=== PATIENT | male | born 1980 | race Caucasian/White ===

== ENCOUNTER 2017-01-28 12:21 | Inpatient (IN) | payer OTHER ==
[2017-01-28 16:52] VITALS: BMI 25.1
--- NOTE | 2017-01-28 17:37 | HP ---
COWS - Scale Resting Pulse: 0= [place] 80 or Below Sweatin= Chills/Flushing Restless Observation: 1= Difficult to Sit Still Pupil Size: 0= Normal to Room Light Bone or Joint Aches: 2= Severe Diffuse Aches Runny Nose/ Eye Tearin= Runny Nose/Eyes GI Upset > 30mins: 3= Vomiting/Diarrhea Tremor Observation: 2= Slight Tremor Visible Yawning Observation: 1= 1-2x During Session Anxiety or Irritability: 2=Irritable/Anxious Goose Flesh Skin: 0=Smooth Skin COWS Score: 14 CIWA Score - CIWA Score Nausea/Vomitin Muscle Tremors: 3 Anxiety: 4-Mod. Anxious/Guarded Agitation: 4-Moderately Restless Paroxysmal Sweats: 2 Orientation: 1-Uncertain about Date Tacttile Disturbances: 0-None Auditory Disturbances: 0-None Visual Disturbances: 0-None Headache: 1-Very Mild CIWA-Ar Total Score: 17 Admission ROS BHS - HPI Chief Complaint: WTIHDRAWAL SX Allergies/Adverse Reactions: Allergies Allergy/AdvReac Type Severity Reaction Status Date / Time No Known Allergies Allergy Verified 01/28/17 17:00 History of Present Illness: 36 YEARS OLD MALE WITH LONG HISTORY OF OPIATE, XANAX, NICOTINE DEPENDENCE, SEIZURE SINCE 1998 TREATED WITH BABAPENTIN HAS CHRONIC BACK PAIN AND BIPOLAR II IS ADMITTED TO DETOX Exam Limitations: No Limitations - Ebola screening Have you traveled outside of the country in the last 21 days: No Have you had contact with anyone from an Ebola affected area: No Have you been sick,other than usual withdrawal symptoms: No Do you have a fever: No - Review of Systems Constitutional: Chills, Loss of Appetite, Changes in sleep, Unintentional Wgt. Loss, Unexplained wgt Loss EENT: reports: No Symptoms Reported, Tinnitus (left ear since 2008) Respiratory: reports: Productive cough (greenish) GI: reports: No Symptoms Reported, Poor Appetite, Indigestion : reports: No Symptoms Reported Musculoskeletal: reports: Back Pain, Joint Pain, Muscle Pain, Neck Pain Integumentary: reports: Change in Color (left dorsal hand) Neuro: reports: Seizure (10/2016), Tremors Endocrine: reports: No Symptoms Reported Hematology: reports: No Symptoms Reported Psychiatric: reports: Judgement Intact Other Systems: Reviewed and Negative Patient History - Patient Medical History Hx Anemia: No Hx Asthma: No Hx Chronic Obstructive Pulmonary Disease (COPD): No Hx Cancer: No Hx Cardiac Disorders: No Hx Congestive Heart Failure: No Hx Hypertension: No Hx Hypercholesterolemia: No Hx Pacemaker: No HX Cerebrovascular Accident: No Hx Seizures: Yes (xanax related seizures last 2 months ago.) Hx Dementia: No Hx Diabetes: No Hx Gastrointestinal Disorders: Yes (GERD) Hx Liver Disease: No Hx Genitourinary Disorders: No Hx Sexually Transmitted Disorders: No Hx Renal Disease (ESRD): No Hx Thyroid Disease: No Hx Human Immunodeficiency Virus (HIV): No Hx Hepatitis C: Yes Hx Depression: No Hx Suicide Attempt: No Hx Bipolar Disorder: Yes Hx Schizophrenia: No - Patient Surgical History Past Surgical History: No - PPD History Previous Implant?: Yes Documented Results: Negative w/o proof Implanted On Prior [facility] Admission?: No PPD to be Administered?: Yes - Smoking Cessation Smoking history: Current every day smoker Have you smoked in the past 12 months: Yes Aproximately how many cigarettes per day: 20 Cigars Per Day: 0 Hx Chewing Tobacco Use: No Initiated information on smoking cessation: Yes 'Breaking Loose' booklet given: 01/28/17 - Substance & Tx. History Hx Alcohol Use: No Hx Substance Use: Yes Substance Use Type: Cocaine, Marijuana, Opiates, Tranquilizers Hx Substance Use Treatment: Yes - Substances Abused Alprazolam (Xanax) Route: Oral Frequency: Daily Amount used: 16 mg Age of first use: 13 Date of Last Use: 01/28/17 Cocaine Route: Smoking Frequency: Daily Amount used: 1 gram Age of first use: 14 Date of Last Use: 01/27/17 Heroin Route: Injection Frequency: Daily Amount used: 3-4 bags Age of first use: 15 Date of Last Use: 01/28/17 Marijuana/Hashish Route: Smoking Frequency: Daily Amount used: 1 joint Age of first use: 8 Date of Last Use: 01/27/17 adderall Route: Oral Frequency: Daily Amount used: 90mg Age of first use: 30 Date of Last Use: 01/27/17 Family Disease History - Family Disease History Family Disease History: [place]: Mother (liver), Other: Father (suicidal 2001 ) Admission Physical Exam BHS - Vital Signs Vital Signs: Vital Signs - 24 hr 01/28/17 16:47 Temperature 96.6 F L Pulse Rate 71 Respiratory 20 Rate Blood Pressure 126/76 - Physical General Appearance: Yes: Appropriately Dressed, Mild Distress, Thin, Tremorous, Irritable, Sweating, Anxious HEENTM: Yes: Hearing grossly Normal, Normal ENT Inspection, Normocephalic, Normal Voice Respiratory: Yes: Chest Non-Tender, Lungs Clear, Normal Breath Sounds, No Respiratory Distress, No Accessory Muscle Use Neck: Yes: Supple, Trachea in good position Breast: Yes: Breasts Symetrical Cardiology: Yes: Regular Rhythm, Regular Rate, S1, S2 Abdominal: Yes: Non Tender, Soft, Increased Bowel Sounds Genitourinary: Yes: Within Normal Limits Back: Yes: Normal Inspection Musculoskeletal: Yes: full range of Motion, Gait Steady, Back pain, Muscle Pain Extremities: Yes: Normal Range of Motion, Non-Tender, Tremors Neurological: Yes: Alert, Motor Strength 5/5, Normal Mood/Affect, Normal Response Integumentary: Yes: Warm, Track Espinoza Lymphatic: Yes: Within Normal Limits - Diagnostic (1) Opioid dependence with withdrawal Current Visit: Yes Status: Acute (2) Sedative, hypnotic or anxiolytic dependence with withdrawal, uncomplicated Current Visit: Yes Status: Acute (3) Cocaine dependence, uncomplicated Current Visit: Yes Status: Acute (4) Cannabis dependence, uncomplicated Current Visit: Yes Status: Chronic (5) Seizure Current Visit: Yes Status: Chronic Comment: neurontin 800 mg tid since 1995 (6) Nicotine dependence Current Visit: Yes Status: Acute Qualifiers: Nicotine product type: cigarettes Substance use status: in withdrawal Qualified Code(s): F17.213 - Nicotine dependence, cigarettes, with withdrawal (7) Hepatitis C antibody test positive Current Visit: Yes Status: Chronic Comment: scheduled to treat (8) Chronic back pain Current Visit: Yes Status: Chronic Qualifiers: Back pain location: low back pain Back pain laterality: bilateral Sciatica presence: without sciatica Qualified Code(s): M54.5 - Low back pain; G89.29 - Other chronic pain Comment: since 2008 (9) Bipolar II disorder Current Visit: Yes Status: Suspected (10) Weight loss Current Visit: Yes Status: Acute (11) Tinnitus Current Visit: Yes Status: Chronic Qualifiers: Laterality: left Qualified Code(s): H93.12 - Tinnitus, left ear Comment: since 2008 Cleared for Admission [facility] - Detox or Rehab [facility] Level of Care: Medically Managed Detox Regimen/Protocol: Methadone/Valium [facility] Breath Alcohol Content Breath Alcohol Content: 0 Urine Drug Screen - Results Drug Screen Negative: No Urine Drug Screen Results: THC-Marijuana, MELISSA-Cocaine, OPI-Opiates, MET- Methamphetamine, BZO-Benzodiazepines, MTD-Methadone, OXY-Oxycodone
[2017-01-28] MEDS ORDERED: MAGNESIUM HYDROX 2400MG/30ML ORAL SUSPENSION 30 ML CUP PO PRN (18:19)
[2017-01-28] MEDS ORDERED: LOPERAMIDE HCL 2 MG CAPSULE PO PRN (18:19)
[2017-01-28] MEDS ORDERED: diphenhydrAMINE HCL 50 MG CAPSULE PO PRN (18:19)
[2017-01-28] MEDS ORDERED: METHADONE HCL 10 MG TABLET (FOR DETOX USE ONLY) PO ONE ×2 (18:19→23:00)
[2017-01-28] MEDS ORDERED: P-EPHED 60MG/TRIPROLIDI 2.5MG TABLET PO PRN (18:19)
[2017-01-28] MEDS ORDERED: MENTHOL/PHENOL 1 EACH UD MM PRN (18:19)
[2017-01-28] MEDS ORDERED: ACETAMINOPHEN 325 MG TABLET (FP) PO PRN (18:19)
[2017-01-28] MEDS ORDERED: MAGNESIUM CITRATE 300 ML BOTTLE PO PRN (18:19)
[2017-01-28] MEDS ORDERED: NICOTINE POLACRILEX 4 MG GUM BC PRN (18:19)
[2017-01-28] MEDS ORDERED: MAG HYDROX/AL HYDROX/SIMETH 30 ML UNIT-DOSE CUP PO PRN (18:19)
[2017-01-28] MEDS ORDERED: guaiFENesin/D-METHORPHAN HB 10 ML UNIT-DOSE CUPS PO PRN (18:19)
[2017-01-28] MEDS ORDERED: diazePAM 5 MG TABLET PO ONE (18:19)
[2017-01-28] MEDS: diazePAM 5 MG TABLET PO SCH (22:55)
[2017-01-28] MEDS: GABAPENTIN 400 MG CAPSULE (FP) PO SCH (22:59)
[2017-01-28] MEDS: THIAMINE HCL 100 MG TABLET (FP) PO SCH (22:59)
[2017-01-28] MEDS: CYCLOBENZAPRINE HCL 10 MG TABLET (FP) PO SCH (22:59)
[2017-01-28] MEDS: RANITIDINE HCL 150 MG TABLET (FP) PO SCH (22:59)
[2017-01-28 23:26] LABS: URINE APPEARANCE CLEAR; URINE BILIRUBIN NEGATIVE (NEGATIVE); URINE BLOOD NEGATIVE (NEGATIVE); URINE COLOR YELLOW; URINE GLUCOSE (UA) NEGATIVE (NEGATIVE); URINE KETONE NEGATIVE (NEGATIVE); URINE LEUK ESTERASE NEGATIVE (NEGATIVE); URINE NITRITE NEGATIVE (NEGATIVE); URINE UROBILINOGEN NEGATIVE E.U./dl (0.2-1.0)
[2017-01-28 23:29] LABS: URINE PROTEIN 1+ (NEGATIVE)
[2017-01-28 23:33] LABS: URINE HYALINE CAST 2 /lpf; URINE MUCUS MODERATE; URINE RBC 1 /hpf (0-3); URINE WBC 1 /hpf (3-5)
[2017-01-29] MEDS: CYCLOBENZAPRINE HCL 10 MG TABLET (FP) PO SCH ×4 (07:15→23:12)
[2017-01-29] MEDS: GABAPENTIN 400 MG CAPSULE (FP) PO SCH ×4 (07:15→23:11)
[2017-01-29] MEDS: diazePAM 5 MG TABLET PO SCH ×3 (07:16→23:12)
[2017-01-29] MEDS: diazePAM 5 MG TABLET PO PRN (07:47)
[2017-01-29] MEDS ORDERED: METHADONE HCL 10 MG TABLET (FOR DETOX USE ONLY) PO SCH (10:00)
[2017-01-29 10:14] LABS: MCH 30.4 pg (25.7-33.7); MCHC 34.7 g/dl (32.0-35.9); MEAN CELL VOLUME 87.7 fl (80-96); MEAN PLT VOLUME 7.9 fl (7.5-11.1); PLATELET COUNT 206 K/MM3 (134-434); RDW 13.5 % (11.9-15.9); WHITE BLOOD COUNT 5.2 K/mm3 (4.0-10.0)
[2017-01-29 10:24] LABS: ALBUMIN 3.5 g/dl (3.4-5.0); ANION GAP 11 (8-16); CO2 28 mmol/L (21-32); SGPT/ALT 48 U/L (12-78)
[2017-01-29 10:27] LABS: ALK PHOS 116 U/L (45-117); BILIRUBIN,TOTAL 0.4 mg/dL (0.2-1.0); CALCIUM 8.5 mg/dL (8.5-10.1); COCKROFT - GAULT 121.37; CREATININE 0.9 mg/dL (0.7-1.3); GLUCOSE,RANDOM 112 mg/dL (74-106); SGOT/AST 31 U/L (15-37); TOT PROT 6.9 g/dl (6.4-8.2)
[2017-01-29] MEDS: PRENATAL VITAMINS W/ FOLIC ACID TABLET (FP) PO SCH (12:01)
[2017-01-29] MEDS: LIDOCAINE 5% TOPICAL PATCH TP SCH (12:02)
[2017-01-29] MEDS: RANITIDINE HCL 150 MG TABLET (FP) PO SCH ×2 (12:02→23:12)
[2017-01-29] MEDS: NICOTINE 21 MG/24 HOURS TOPICAL PATCH TD SCH (12:02)
--- NOTE | 2017-01-29 15:01 | PN ---
[facility] CIWA - CIWA Score Nausea/Vomitin-No Nausea/No Vomiting Muscle Tremors: 3 Anxiety: 4-Mod. Anxious/Guarded Agitation: 2 Paroxysmal Sweats: 3 Orientation: 4Disoriented Place/Person Tacttile Disturbances: 2-Mild Itch/Numbness/Burn Auditory Disturbances: 0-None Visual Disturbances: 0-None Headache: 3-Moderate CIWA-Ar Total Score: 21 BHS COWS - Scale Resting Pulse: 0= [place] 80 or Below Sweatin= Chills/Flushing Restless Observation: 1= Difficult to Sit Still Pupil Size: 0= Normal to Room Light Bone or Joint Aches: 2= Severe Diffuse Aches Runny Nose/ Eye Tearin= Nasal Congestion GI Upset > 30mins: 1= Stomach Cramp Tremor Observation of Outstretched Hands: 2= Slight Tremor Visible Yawning Observation: 1= 1-2x During Session Anxiety or Irritability: 2=Irritable/Anxious Goose Flesh Skin: 3=Piloerection COWS Score: 14 S Progress Note (SOAP) Subjective: Fatigue, H/A, Body aches, Sweating. Objective: PT. A & O X 1 (DISORIENTED ABOUT DAY/DATE AND ABOUT LOCATION). 01/29/17 14:58 Vital Signs Temperature 97.7 F 01/29/17 06:00 Pulse Rate 56 L 01/29/17 06:00 Respiratory Rate 16 01/29/17 06:00 Blood Pressure 116/60 01/29/17 06:00 O2 Sat by Pulse Oximetry (%) Laboratory Last Values WBC 5.2 K/mm3 (4.0-10.0) 01/29/17 06:00 RBC 4.42 M/mm3 (4.00-5.60) 01/29/17 06:00 Hgb 13.5 GM/dL (11.7-16.9) 01/29/17 06:00 Hct 38.7 % (35.4-49) 01/29/17 06:00 MCV 87.7 fl (80-96) 01/29/17 06:00 MCHC 34.7 g/dl (32.0-35.9) 01/29/17 06:00 RDW 13.5 % (11.9-15.9) 01/29/17 06:00 Plt Count 206 K/MM3 (134-434) 01/29/17 06:00 MPV 7.9 fl (7.5-11.1) 01/29/17 06:00 Sodium 140 mmol/L (136-145) 01/29/17 06:00 Potassium 3.4 mmol/L (3.5-5.1) L 01/29/17 06:00 Chloride 101 mmol/L (98-107) 01/29/17 06:00 Carbon Dioxide 28 mmol/L (21-32) 01/29/17 06:00 Anion Gap 11 (8-16) 01/29/17 06:00 BUN 16 mg/dL (7-18) 01/29/17 06:00 Creatinine 0.9 mg/dL (0.7-1.3) 01/29/17 06:00 Creat Clearance w eGFR > 60 (>60) 01/29/17 06:00 Random Glucose 112 mg/dL (74-106) H 01/29/17 06:00 Calcium 8.5 mg/dL (8.5-10.1) 01/29/17 06:00 Total Bilirubin 0.4 mg/dL (0.2-1.0) 01/29/17 06:00 AST 31 U/L (15-37) 01/29/17 06:00 ALT 48 U/L (12-78) 01/29/17 06:00 Alkaline Phosphatase 116 U/L (45-117) 01/29/17 06:00 Total Protein 6.9 g/dl (6.4-8.2) 01/29/17 06:00 Albumin 3.5 g/dl (3.4-5.0) 01/29/17 06:00 Urine Color Yellow 01/28/17 22:03 Urine Appearance Clear 01/28/17 22:03 Urine pH 5.0 (5.0-8.0) 01/28/17 22:03 Ur Specific [place] 1.034 (1.001-1.035) 01/28/17 22:03 Urine Protein 1+ (NEGATIVE) H 01/28/17 22:03 Urine Glucose (UA) Negative (NEGATIVE) 01/28/17 22:03 Urine Ketones Negative (NEGATIVE) 01/28/17 22:03 Urine Blood Negative (NEGATIVE) 01/28/17 22:03 Urine Nitrite Negative (NEGATIVE) 01/28/17 22:03 Urine Bilirubin Negative (NEGATIVE) 01/28/17 22:03 Urine Urobilinogen Negative E.U./dl (0.2-1.0) 01/28/17 22:03 Ur Leukocyte Esterase Negative (NEGATIVE) 01/28/17 22:03 Urine RBC 1 /hpf (0-3) 01/28/17 22:03 Urine WBC 1 /hpf (3-5) 01/28/17 22:03 Hyaline Casts 2 /lpf 01/28/17 22:03 Urine Mucus Moderate 01/28/17 22:03 RPR Titer Nonreactive (NONREACTIVE) 01/29/17 06:00 LABS NOTED. Assessment: 01/29/17 14:59 WITHDRAWAL SYMPTOMS. Plan: CONTINUE DETOX. K, 20 MEQ NOW AND THEN BID AFTER. ADVISED PATIENT TO FOLLOW-UP WITH BUSINESS STRATEGY MANAGER / REHAB MEDICAL PROVIDER AFTER DISCHARGE FROM DETOX FOR GENERAL MEDICAL ASSESSMENT AND FOR ABNORMAL ADMISSION LAB VALUES.
[2017-01-29] MEDS ORDERED: POTASSIUM CHLORIDE TABS 20 MEQ TABLET.ER (FP) PO ONE (15:02)
--- NOTE | 2017-01-29 16:16 | EKG ---
Test Reason : Blood Pressure : / mmHG Vent. Rate : 076 BPM Atrial Rate : 076 BPM P-R Int : 144 ms QRS Dur : 090 ms QT Int : 356 ms P-R-T Axes : 056 063 049 degrees QTc Int : 400 ms NORMAL SINUS RHYTHM NORMAL ECG NO PREVIOUS ECGS AVAILABLE Confirmed by JJ HART MD ([id number]) on 01/29/2017 4:15:52 PM Referred By: Confirmed By:JJ HART MD
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
[2017-01-29] MEDS ORDERED: ZOLPIDEM TARTRATE 5 MG TABLET PO PRN (17:13)
[2017-01-29] MEDS ORDERED: buPROPion HCL 75 MG TABLET PO ONE (17:30)
[2017-01-29] MEDS ORDERED: buPROPion HCL 100 MG TABLET PO SCH (22:00)
[2017-01-29] MEDS ORDERED: buPROPion HCL 75 MG TABLET PO SCH (22:00)
[2017-01-29] MEDS: POTASSIUM CHLORIDE TABS 20 MEQ TABLET.ER (FP) PO SCH (23:12)
[2017-01-29] MEDS: ZOLPIDEM TARTRATE 5 MG TABLET PO PRN (23:15)
[2017-01-30] MEDS: THIAMINE HCL 100 MG TABLET (FP) PO SCH ×2 (00:08→22:47)
[2017-01-30] MEDS: GABAPENTIN 400 MG CAPSULE (FP) PO SCH ×3 (06:03→22:46)
[2017-01-30] MEDS: CYCLOBENZAPRINE HCL 10 MG TABLET (FP) PO SCH ×3 (06:03→22:46)
[2017-01-30] MEDS: diazePAM 5 MG TABLET PO PRN ×2 (06:06→17:52)
[2017-01-30] MEDS: PRENATAL VITAMINS W/ FOLIC ACID TABLET (FP) PO SCH (11:08)
[2017-01-30] MEDS: POTASSIUM CHLORIDE TABS 20 MEQ TABLET.ER (FP) PO SCH ×2 (11:09→22:46)
[2017-01-30] MEDS: diazePAM 5 MG TABLET PO SCH ×2 (11:09→22:46)
[2017-01-30] MEDS: RANITIDINE HCL 150 MG TABLET (FP) PO SCH ×2 (11:09→22:46)
[2017-01-30] MEDS: buPROPion HCL 75 MG TABLET PO SCH ×2 (11:09→17:50)
[2017-01-30] MEDS: METHADONE HCL 5 MG TABLET (FOR DETOX USE ONLY) PO SCH (11:09)
[2017-01-30] MEDS: NICOTINE 21 MG/24 HOURS TOPICAL PATCH TD SCH (11:10)
[2017-01-30] MEDS: LIDOCAINE 5% TOPICAL PATCH TP SCH (11:10)
--- NOTE | 2017-01-30 15:21 | PN ---
S CIWA - CIWA Score Nausea/Vomitin Muscle Tremors: 4-Moderate,w/Arms Extend Anxiety: 4-Mod. Anxious/Guarded Agitation: 4-Moderately Restless Paroxysmal Sweats: No Perspiration Orientation: 0-Oriented Tacttile Disturbances: 1-Very Mild Itch/Numbness Auditory Disturbances: 0-None Visual Disturbances: 0-None Headache: 2-Mild CIWA-Ar Total Score: 18 BHS COWS - Scale Resting Pulse: 0= [place] 80 or Below Sweatin= Chills/Flushing Restless Observation: 3= Extraneous Movement Pupil Size: 0= Normal to Room Light Bone or Joint Aches: 2= Severe Diffuse Aches Runny Nose/ Eye Tearin= Runny Nose/Eyes GI Upset > 30mins: 1= Stomach Cramp Tremor Observation of Outstretched Hands: 2= Slight Tremor Visible Yawning Observation: 1= 1-2x During Session Anxiety or Irritability: 4=Extreme Anxiety Goose Flesh Skin: 0=Smooth Skin COWS Score: 16 S Progress Note (SOAP) Subjective: Irritable, chills, tremor, anxious, nausea, interrupted sleep, sweating Objective: 01/30/17 15:18 Last Vital Signs Temp Pulse Resp BP Pulse Ox 97.0 F L 71 16 123/68 01/30/17 13:54 01/30/17 13:54 01/30/17 13:54 01/30/17 13:54 Laboratory Tests 01/28/17 01/29/17 01/29/17 22:03 06:00 06:00 WBC 5.2 RBC 4.42 Hgb 13.5 Hct 38.7 MCV 87.7 MCHC 34.7 RDW 13.5 Plt Count 206 MPV 7.9 Sodium 140 Potassium 3.4 L Chloride 101 Carbon Dioxide 28 Anion Gap 11 BUN 16 Creatinine 0.9 Creat Clearance w eGFR > 60 Random Glucose 112 H Calcium 8.5 Total Bilirubin 0.4 AST 31 ALT 48 Alkaline Phosphatase 116 Total Protein 6.9 Albumin 3.5 Urine Color Yellow Urine Appearance Clear Urine pH 5.0 Ur Specific [place] 1.034 Urine Protein 1+ H Urine Glucose (UA) Negative Urine Ketones Negative Urine Blood Negative Urine Nitrite Negative Urine Bilirubin Negative Urine Urobilinogen Negative Ur Leukocyte Esterase Negative Urine RBC 1 Urine WBC 1 Hyaline Casts 2 Urine Mucus Moderate RPR Titer 01/29/17 06:00 WBC RBC Hgb Hct MCV MCHC RDW Plt Count MPV Sodium Potassium Chloride Carbon Dioxide Anion Gap BUN Creatinine Creat Clearance w eGFR Random Glucose Calcium Total Bilirubin AST ALT Alkaline Phosphatase Total Protein Albumin Urine Color Urine Appearance Urine pH Ur Specific [place] Urine Protein Urine Glucose (UA) Urine Ketones Urine Blood Urine Nitrite Urine Bilirubin Urine Urobilinogen Ur Leukocyte Esterase Urine RBC Urine WBC Hyaline Casts Urine Mucus RPR Titer Nonreactive Labs noted: K 3.4; UA: 1+ protein Assessment: 01/30/17 15:19 Withdrawal symptoms Noted with proteinuria and hypokalemia Plan: Continue detox Proteinuria: encouraged to drink lots of water, repeat UA Hypokalemia: continue K Dur PO supplement, repeat BMP
[2017-01-30] MEDS: ZOLPIDEM TARTRATE 5 MG TABLET PO PRN (22:46)
[2017-01-31] MEDS: GABAPENTIN 400 MG CAPSULE (FP) PO SCH ×3 (06:38→22:41)
[2017-01-31] MEDS: CYCLOBENZAPRINE HCL 10 MG TABLET (FP) PO SCH ×3 (06:38→22:42)
[2017-01-31] MEDS: PRENATAL VITAMINS W/ FOLIC ACID TABLET (FP) PO SCH (10:51)
[2017-01-31] MEDS: diazePAM 5 MG TABLET PO SCH ×2 (10:51→22:42)
[2017-01-31] MEDS: METHADONE HCL 5 MG TABLET (FOR DETOX USE ONLY) PO SCH (10:51)
--- NOTE | 2017-01-31 10:51 | PN ---
BHS Progress Note (SOAP) Subjective: ALERT,IRRITABLE,ANXIOUS,INTERRUPTED SLEEP,PAIN IN THE BODY AND BACK Objective: 01/31/17 10:50 Vital Signs Temperature 97.5 F L 01/31/17 09:44 Pulse Rate 76 01/31/17 09:44 Respiratory Rate 16 01/31/17 09:44 Blood Pressure 133/68 01/31/17 09:44 O2 Sat by Pulse Oximetry (%) Assessment: 01/31/17 10:50 WITHDRAWAL SYMPTOM Plan: CONTINUE DETOX
[2017-01-31] MEDS: buPROPion HCL 75 MG TABLET PO SCH ×2 (10:52→16:55)
[2017-01-31] MEDS: NICOTINE 21 MG/24 HOURS TOPICAL PATCH TD SCH (10:52)
[2017-01-31] MEDS: RANITIDINE HCL 150 MG TABLET (FP) PO SCH ×2 (10:52→22:55)
[2017-01-31] MEDS: POTASSIUM CHLORIDE TABS 20 MEQ TABLET.ER (FP) PO SCH ×2 (10:52→22:41)
[2017-01-31] MEDS: LIDOCAINE 5% TOPICAL PATCH TP SCH (10:53)
[2017-01-31 18:18] LABS: URINE APPEARANCE CLEAR; URINE BILIRUBIN NEGATIVE (NEGATIVE); URINE BLOOD NEGATIVE (NEGATIVE); URINE COLOR YELLOW; URINE GLUCOSE (UA) NEGATIVE (NEGATIVE); URINE KETONE NEGATIVE (NEGATIVE); URINE LEUK ESTERASE NEGATIVE (NEGATIVE); URINE NITRITE NEGATIVE (NEGATIVE); URINE PROTEIN NEGATIVE (NEGATIVE); URINE UROBILINOGEN NEGATIVE E.U./dl (0.2-1.0)
[2017-01-31] MEDS: ZOLPIDEM TARTRATE 5 MG TABLET PO PRN (22:41)
[2017-01-31] MEDS: THIAMINE HCL 100 MG TABLET (FP) PO SCH (22:41)
[2017-02-01] MEDS: CYCLOBENZAPRINE HCL 10 MG TABLET (FP) PO SCH (07:33)
[2017-02-01] MEDS: GABAPENTIN 400 MG CAPSULE (FP) PO SCH (07:33)
[2017-02-01 09:47] VITALS: BP 122/75; PULSE 81; TEMP 98.1
--- NOTE | 2017-02-01 09:56 | PN ---
BHS Progress Note (SOAP) Subjective: ALERT,INTERRUPTED SLEEP,PAIN IN THE BODY Objective: 02/01/17 09:55 Vital Signs Temperature 98.1 F 02/01/17 09:44 Pulse Rate 81 02/01/17 09:44 Respiratory Rate 18 02/01/17 09:44 Blood Pressure 122/75 02/01/17 09:44 O2 Sat by Pulse Oximetry (%) Assessment: 02/01/17 09:56 WITHDRAWAL SYMPTOM Plan: CONTINUE DETOX,DISCHARGE IN AM
[2017-02-01] MEDS ORDERED: diazePAM 5 MG TABLET PO SCH (10:00)
[2017-02-01] MEDS ORDERED: METHADONE HCL 10 MG TABLET (FOR DETOX USE ONLY) PO SCH (10:00)
[2017-02-01] MEDS ORDERED: LORATADINE 10 MG TABLET PO ONE (10:04)
[2017-02-01] MEDS: RANITIDINE HCL 150 MG TABLET (FP) PO SCH (10:48)
[2017-02-01] MEDS: buPROPion HCL 75 MG TABLET PO SCH (10:48)
[2017-02-01] MEDS: POTASSIUM CHLORIDE TABS 20 MEQ TABLET.ER (FP) PO SCH (10:48)
[2017-02-01] MEDS: PRENATAL VITAMINS W/ FOLIC ACID TABLET (FP) PO SCH (10:48)
[2017-02-01] MEDS: NICOTINE 21 MG/24 HOURS TOPICAL PATCH TD SCH (10:51)
[2017-02-01] MEDS: LIDOCAINE 5% TOPICAL PATCH TP SCH (10:51)
[2017-02-02] MEDS ORDERED: METHADONE HCL 5 MG TABLET (FOR DETOX USE ONLY) PO SCH (06:00)
[2017-02-02] MEDS ORDERED: LORATADINE 10 MG TABLET PO SCH (10:00)
--- NOTE | 2017-03-24 13:39 | DS ---
[facility] Detox Discharge Summary Admission Date: 01/28/17 Discharge Date: 03/24/17 - History Present History: Cannabis Dependence, Cocaine Dependence, Opioid Dependence, Sedative Dependence Additional Comments: amphethamine abuse - Physical Exam Results Vital Signs: Vital Signs Temperature 98.1 F 02/01/17 09:44 Pulse Rate 81 02/01/17 09:44 Respiratory Rate 18 02/01/17 09:44 Blood Pressure 122/75 02/01/17 09:44 O2 Sat by Pulse Oximetry (%) - Treatment Hospital Course: Detox Protocol Followed, Detoxed Safely, Responded well, Discharged Condition Good - Medication Discharge Medications: Ambulatory Orders Buprenorphine/Naloxone [Suboxone 8Mg/2Mg Sl Film -] 3 each SL DAILY 01/28/17 Bupropion HCl [Wellbutrin Xl] 300 mg PO BID 01/28/17 Gabapentin 800 mg PO TID 01/28/17 - Diagnosis (1) Amphetamine dependence Status: Acute (2) Cocaine dependence, uncomplicated Status: Acute (3) Nicotine dependence Status: Acute Qualifiers: Nicotine product type: cigarettes Substance use status: in withdrawal Qualified Code(s): F17.213 - Nicotine dependence, cigarettes, with withdrawal (4) Opioid dependence with withdrawal Status: Acute (5) Sedative, hypnotic or anxiolytic dependence with withdrawal, uncomplicated Status: Acute (6) Weight loss Status: Acute (7) Chronic back pain Status: Chronic Qualifiers: Back pain location: low back pain Back pain laterality: bilateral Sciatica presence: without sciatica Qualified Code(s): M54.5 - Low back pain; G89.29 - Other chronic pain (8) Hepatitis C antibody test positive Status: Chronic (9) Seizure Status: Chronic (10) Tinnitus Status: Chronic Qualifiers: Laterality: left Qualified Code(s): H93.12 - Tinnitus, left ear (11) Bipolar II disorder Status: Suspected - AMA Did Patient Leave Against Medical Advice: No
== END 2017-02-01 11:10 | disposition home or self-care (01) | DRG 773 ==
LOC: YASAS 12:21 → Y6N 19:11
PROVIDERS: ADMIT Internal Medicine Addiction Medicine; ATTEND Internal Medicine Addiction Medicine
PROC: HZ2ZZZZ Detoxification Services for Substance Abuse Treatment (ICD-10-PCS; principal; 2017-02-01)
DX: F11.23 Opioid dependence with withdrawal (principal); F13.230 Sedative, hypnotic or anxiolytic dependence with withdrawal, uncomplicated; F14.20 Cocaine dependence, uncomplicated; F15.20 Other stimulant dependence, uncomplicated; F12.20 Cannabis dependence, uncomplicated; F17.210 Nicotine dependence, cigarettes, uncomplicated; F31.81 Bipolar II disorder; F19.24 Other psychoactive substance dependence with psychoactive substance-induced mood disorder; G40.909 Epilepsy, unspecified, not intractable, without status epilepticus; B18.2 Chronic viral hepatitis C; M54.5 Low back pain; H93.12 Tinnitus, left ear; R63.4 Abnormal weight loss; Z68.25 Body mass index [BMI] 25.0-25.9, adult
CPT/HCPCS: 36415; 80053; 81003; 81015; 85027; 86593; 93005; 93010

== ENCOUNTER 2019-03-29 10:47 | Inpatient (IN) | payer OTHER ==
[2019-03-29 11:32] VITALS: BMI 28.6
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
[2019-03-29] MEDS ORDERED: MENTHOL/PHENOL 1 EACH UD MM PRN (17:04)
[2019-03-29] MEDS ORDERED: MAGNESIUM CITRATE 300 ML BOTTLE PO PRN (17:04)
[2019-03-29] MEDS ORDERED: METHOCARBAMOL 500 MG TABLET PO PRN (17:04)
[2019-03-29] MEDS ORDERED: NICOTINE POLACRILEX 2 MG GUM BUC PRN (17:04)
[2019-03-29] MEDS ORDERED: ACETAMINOPHEN 325 MG TABLET (FP) PO PRN ×2 (17:04)
[2019-03-29] MEDS ORDERED: MAG HYDROX/AL HYDROX/SIMETH 30 ML UNIT-DOSE CUP PO PRN (17:04)
[2019-03-29] MEDS ORDERED: MAGNESIUM HYDROX 2400MG/30ML ORAL SUSPENSION 30 ML CUP PO PRN (17:04)
[2019-03-29] MEDS: chlordiazePOXIDE HCL 25 MG CAPSULE PO PRN (18:50)
[2019-03-29] MEDS: THIAMINE HCL 100 MG TABLET (FP) PO SCH (22:32)
[2019-03-29] MEDS: chlordiazePOXIDE HCL 25 MG CAPSULE PO SCH (22:32)
[2019-03-29] MEDS: MELATONIN 5 MG TABLETS PO PRN (22:34)
[2019-03-29] MEDS: BACITRACIN/POLYMYXIN B SULFATE 15 GM TUBE TP SCH (22:35)
[2019-03-30] MEDS: chlordiazePOXIDE HCL 25 MG CAPSULE PO SCH ×4 (05:26→22:32)
[2019-03-30] MEDS: PRENATAL VITAMINS W/ FOLIC ACID TABLET (FP) PO SCH (10:22)
[2019-03-30] MEDS: BUPRENORPHINE/NALOXONE 8 MG/2 MG FILM PACKET SL SCH (10:22)
[2019-03-30] MEDS: BACITRACIN/POLYMYXIN B SULFATE 15 GM TUBE TP SCH ×2 (10:25→23:00)
--- NOTE | 2019-03-30 10:45 | CONSULT ---
[facility] Psychiatric Consult - Data Date of interview: 03/30/19 Admission source: [facility] Identifying data: First admission to [facility] for this 36 y/o male seeking detox treatment for heroin,cocaine,amphetamines and sedative/anxiolytic (xanax) dependence.Patient is single without children,homeless,unemployed and supported by relatives. Substance Abuse History: Smoking history: Current every day smoker. Have you smoked in the past 12 months: Yes. Aproximately how many cigarettes per day: 20. Cigars Per Day: 0. Hx Chewing Tobacco Use: No. Initiated information on smoking cessation: No. - Substances abused. Alcohol. Substance route: Oral. Frequency: Daily. Amount used: VODKA- 1PT. Age of first use: 10. Date of last use: 03/28/19. Alprazolam (Xanax). Substance route: Oral. Frequency: Daily. Amount used: 4MG. Age of first use: 14. Date of last use: 03/27/19. Benzodiazepine (Klonopin). Substance route: Oral. Frequency: Daily. Amount used: 4MG. Age of first use: 14. Date of last use: 03/27/19 Medical History: Remarkable for hepatitis C, GERD, withdrawal-related seizures and a history of pancreatitis. History of head trauma (2016). Psychiatric History: Patient admits to a history of two psychiatric hospitalizations ([facility] in [place] + [facility] in [place]). He endorses the diagnoses of ADHD and Bipolar Disorder. Mr Gould reports current maintenance on wellbutrin XL 300 mg/day (prescribed by a primary care doctor). No contact with [facility] psychiatrists. Patient is also on suboxone maintenance at [facility] [place]. No history of suicide attempts. Physical/Sexual Abuse/Trauma History: Patient reports a family history of suicide : biological father (patient was 20) + a maternal aunt (patient was 10) committed suicide via self-inflicted gunshot wounds. Additional Comment: Urine drug screen results: BZO-Benzodiazepines, BUP- Suboxone. Noted. Mental Status Exam - Mental Status Exam Alert and Oriented to: Time, Place, Person Cognitive Function: Good Patient Appearance: Unkempt, Disheveled Mood: Nervous, Withdrawn, Anxious, Irritable Affect: Mood Congruent, Constricted Patient Behavior: Cooperative Speech Pattern: Clear, Appropriate Voice Loudness: Normal Thought Process: Goal Oriented Thought Disorder: Not Present Hallucinations: Denies Suicidal Ideation: Denies Homicidal Ideation: Denies Insight/Judgement: Poor Sleep: Well Appetite: Good Muscle strength/Tone: Normal Gait/Station: Normal Psychiatric Findings - Problem List ([place] 1, 2,3) (1) Opioid dependence on agonist therapy Current Visit: Yes Status: Chronic (2) Sedative, hypnotic or anxiolytic dependence with withdrawal, uncomplicated Current Visit: Yes Status: Chronic (3) Alcohol dependence Current Visit: Yes Status: Chronic Qualifiers: Substance use status: in withdrawal (4) Nicotine dependence Current Visit: Yes Status: Chronic Qualifiers: Nicotine product type: cigarettes (5) Substance induced mood disorder Current Visit: Yes Status: Chronic (6) History of ADHD Current Visit: Yes Status: Chronic Comment: Self-report. (7) History of bipolar disorder Current Visit: Yes Status: Chronic Comment: Self-report. (8) Non-compliance Current Visit: Yes Status: Chronic - Initial Treatment Plan Initial Treatment Plan: Psychoeducation. Sleep hygiene. Detoxification. Wellbutrin XL 150 mg po daily. Ordered. Side effects/benefits discussed with the patient. Verbal consent given to MD. BRUCE/KOLE meetings. Groups. Observation.
[2019-03-30] MEDS: BACLOFEN 10 MG TABLET (FP) PO PRN ×2 (11:29→20:01)
[2019-03-30] MEDS: BISMUTH SUBSALICYLATE 524 MG/30 ML UD PO PRN (13:27)
[2019-03-30] MEDS ORDERED: GABAPENTIN 400 MG CAPSULE (FP) PO ONE (13:57)
--- NOTE | 2019-03-30 13:58 | PN ---
S CIWA - CIWA Score Nausea/Vomitin-No Nausea/No Vomiting Muscle Tremors: 3 Anxiety: 3 Agitation: 2 Paroxysmal Sweats: 3 Orientation: 0-Oriented Tacttile Disturbances: 2-Mild Itch/Numbness/Burn Auditory Disturbances: 0-None Visual Disturbances: 2-Mild Sensitivity Headache: 3-Moderate CIWA-Ar Total Score: 18 BHS Progress Note (SOAP) Subjective: Body Aches, Tremors, Anxious, Sweating, Diarrhea / Constipation (Alternating), Fatigue. Objective: PATIENT A & O X 3, OBSERVED AMBULATING ON UNIT UNASSISTED. IN NO ACUTE DISTRESS. 03/30/19 13:59 Vital Signs Temperature 98.2 F 03/30/19 13:15 Pulse Rate 67 03/30/19 13:15 Respiratory Rate 18 03/30/19 13:15 Blood Pressure 117/73 03/30/19 13:15 O2 Sat by Pulse Oximetry (%) ADMISSION LAB RESULTS PENDING. Assessment: 03/30/19 13:59 WITHDRAWAL SYMPTOMS. Plan: CONTINUE DETOX. INCREASE DAILY PO FLUID / WATER INTAKE. PRN BACLOFEN PO FOR BODY ACHES / MUSCLE SPASMS (PATIENT REPORTS THAT HE IS PRESCRIBED THIS MEDICATION ON OUTPATIENT BASIS) PER PHARMACIST ALAN AT PATIENT'S PHARMACY ([facility], [place], [place]), PATIENT IS PRESCRIBED GABAPENTIN, 800 MG PO BID ON OUTPATIENT BASIS. MEDICATION RECONCILED AND ORDERED.
[2019-03-30] MEDS: hydrOXYzine PAMOATE 25 MG CAPSULE (FP) PO PRN (20:01)
[2019-03-30] MEDS: GABAPENTIN 400 MG CAPSULE (FP) PO SCH (22:29)
[2019-03-30] MEDS: THIAMINE HCL 100 MG TABLET (FP) PO SCH (22:32)
[2019-03-30] MEDS: IBUPROFEN 400 MG TABLET (FP) PO PRN (23:13)
--- NOTE | 2019-03-31 00:45 | PN ---
S Progress Note Note: ASKED TO SEE PATIENT FOR C/O BRUISES UPON ARRIVAL CLIENT NOTED LYING IN BED NAD/ AWAKE/ALERT PULLING UP SHIRT ATTEMPTING TO SHOW INTERMODAL CUSTOMER SERVICE HIS COMPLAINTS. REFUSED TO BE EXAMINED AFTER INTERMODAL CUSTOMER SERVICE ASKED CLIENT TO SIT UP IN BED TO BE EXAMINED INTERMODAL CUSTOMER SERVICE WAS UNABLE TO SEE WHAT HE WAS POINTING TO/ COMPLAINING ABOUT. CLIENT TOLD INTERMODAL CUSTOMER SERVICE THEN "TO GET THE FUCK OUT OF HERE". Last Vital Signs Temp Pulse Resp BP Pulse Ox 97.7 F 72 18 127/81 03/30/19 21:48 03/30/19 21:48 03/30/19 21:48 03/30/19 21:48
[2019-03-31] MEDS: chlordiazePOXIDE HCL 25 MG CAPSULE PO SCH ×3 (07:10→17:05)
[2019-03-31] MEDS: PRENATAL VITAMINS W/ FOLIC ACID TABLET (FP) PO SCH (10:09)
[2019-03-31] MEDS: BACITRACIN/POLYMYXIN B SULFATE 15 GM TUBE TP SCH ×2 (10:10→21:58)
[2019-03-31] MEDS: BUPRENORPHINE/NALOXONE 8 MG/2 MG FILM PACKET SL SCH ×2 (10:11→21:59)
[2019-03-31] MEDS: GABAPENTIN 400 MG CAPSULE (FP) PO SCH ×2 (10:12→22:00)
[2019-03-31] MEDS: BACLOFEN 10 MG TABLET (FP) PO PRN ×2 (11:12→13:42)
[2019-03-31] MEDS: IBUPROFEN 400 MG TABLET (FP) PO PRN (11:42)
--- NOTE | 2019-03-31 12:40 | PN ---
S CIWA - CIWA Score Nausea/Vomitin-No Nausea/No Vomiting Muscle Tremors: 2 Anxiety: 2 Agitation: 2 Paroxysmal Sweats: 3 Orientation: 0-Oriented Tacttile Disturbances: 0-None Auditory Disturbances: 0-None Visual Disturbances: 0-None Headache: 2-Mild CIWA-Ar Total Score: 11 S Progress Note (SOAP) Subjective: c/o sweats, headache, anxiety, and shakes Objective: 03/31/19 12:39 Vital Signs 03/31/19 03/31/19 06:18 09:50 Temperature 97 F L 96.4 F L Pulse Rate 61 60 Respiratory 18 18 Rate Blood Pressure 113/71 105/62 Assessment: 03/31/19 12:39 AOX3, in no respiratory distress, full rom, ambulating in the unit. Withdrawal symptoms. Plan: continue detox increase fluids.
[2019-03-31] MEDS: chlordiazePOXIDE HCL 25 MG CAPSULE PO PRN (13:41)
[2019-03-31] MEDS ORDERED: guaiFENesin 200 MG/10 ML 10 ML UNIT-DOSE CUPS PO PRN (14:04)
[2019-03-31] MEDS ORDERED: BUPRENORPHINE/NALOXONE 8 MG/2 MG FILM PACKET SL ONE (15:06)
--- NOTE | 2019-03-31 15:08 | PN ---
[facility] Progress Note Note: patient is on suboxone 8mgs/2 mgs film sl tid,ordered
[2019-03-31] MEDS: hydrOXYzine PAMOATE 25 MG CAPSULE (FP) PO PRN (17:04)
[2019-03-31] MEDS: chlordiazePOXIDE HCL 10 MG CAPSULE PO SCH (22:00)
[2019-03-31] MEDS: THIAMINE HCL 100 MG TABLET (FP) PO SCH (22:00)
[2019-04-01] MEDS: MELATONIN 5 MG TABLETS PO PRN (00:30)
[2019-04-01] MEDS: BACLOFEN 10 MG TABLET (FP) PO PRN ×3 (00:30→21:59)
[2019-04-01] MEDS: chlordiazePOXIDE HCL 10 MG CAPSULE PO PRN ×2 (00:30→13:29)
[2019-04-01] MEDS: chlordiazePOXIDE HCL 10 MG CAPSULE PO SCH ×4 (06:02→22:00)
[2019-04-01] MEDS: BUPRENORPHINE/NALOXONE 8 MG/2 MG FILM PACKET SL SCH ×3 (06:02→21:54)
[2019-04-01] MEDS: PRENATAL VITAMINS W/ FOLIC ACID TABLET (FP) PO SCH (10:25)
[2019-04-01] MEDS: GABAPENTIN 400 MG CAPSULE (FP) PO SCH ×2 (10:26→21:55)
[2019-04-01] MEDS: BACITRACIN/POLYMYXIN B SULFATE 15 GM TUBE TP SCH ×2 (10:27→21:55)
--- NOTE | 2019-04-01 12:33 | PN ---
S CIWA - CIWA Score Nausea/Vomitin-No Nausea/No Vomiting Muscle Tremors: 2 Anxiety: 2 Agitation: 2 Paroxysmal Sweats: 1-Minimal Palms Moist Orientation: 0-Oriented Tacttile Disturbances: 0-None Auditory Disturbances: 0-None Visual Disturbances: 0-None Headache: 0-None Present CIWA-Ar Total Score: 7 BHS Progress Note (SOAP) Subjective: FEELING BETTER TODAY TOOK SUBOXONE THIS MORNING PATIENT WILL RETURN TO SUBOXONE PROVIDER FOR MEDICAL AND MENTAL ISSUES Objective: 04/01/19 12:33 Vital Signs Temperature 96.7 F L 04/01/19 09:19 Pulse Rate 53 L 04/01/19 09:19 Respiratory Rate 18 04/01/19 09:19 Blood Pressure 117/79 04/01/19 09:19 O2 Sat by Pulse Oximetry (%) 04/01/19 12:36 ORDER ADMISSION LAB TODAY Assessment: 04/01/19 12:36 WITHDRAWAL SX Plan: CONTINUE DETOX
[2019-04-01] MEDS: BISMUTH SUBSALICYLATE 524 MG/30 ML UD PO PRN (15:21)
[2019-04-01] MEDS: hydrOXYzine PAMOATE 25 MG CAPSULE (FP) PO PRN (17:03)
[2019-04-01] MEDS: THIAMINE HCL 100 MG TABLET (FP) PO SCH (21:54)
[2019-04-02] MEDS: hydrOXYzine PAMOATE 25 MG CAPSULE (FP) PO PRN ×2 (03:49→19:52)
[2019-04-02] MEDS: BUPRENORPHINE/NALOXONE 8 MG/2 MG FILM PACKET SL SCH ×3 (05:22→21:47)
[2019-04-02] MEDS: BISMUTH SUBSALICYLATE 524 MG/30 ML UD PO PRN (08:35)
--- NOTE | 2019-04-02 09:58 | PN ---
[facility] CIWA - CIWA Score Nausea/Vomitin-Mild Nausea/No Vomiting Muscle Tremors: 1-None Visible, but Brandon Anxiety: 2 Agitation: 1-Slight > Activity Paroxysmal Sweats: No Perspiration Orientation: 0-Oriented Tacttile Disturbances: 0-None Auditory Disturbances: 0-None Visual Disturbances: 0-None Headache: 0-None Present CIWA-Ar Total Score: 5 BHS Progress Note (SOAP) Subjective: alert prefers to go to [facility] ambulating on hallway tolerate food and fluid well Objective: 04/02/19 09:58 Vital Signs Temperature 97.7 F 04/02/19 09:07 Pulse Rate 63 04/02/19 09:07 Respiratory Rate 18 04/02/19 09:07 Blood Pressure 112/74 04/02/19 09:07 O2 Sat by Pulse Oximetry (%) admission blood order been cancelled due to patient refused discuss the necessity of admission lab value patient agrees blood to be drawn reorder admission blood work leader writer call [phone] blood will be drawl today Assessment: 04/02/19 10:19 alcohol and benzo withdrawal sx Plan: continue detox
[2019-04-02] MEDS: BACITRACIN/POLYMYXIN B SULFATE 15 GM TUBE TP SCH ×2 (10:10→21:47)
[2019-04-02] MEDS: PRENATAL VITAMINS W/ FOLIC ACID TABLET (FP) PO SCH (10:10)
[2019-04-02] MEDS: GABAPENTIN 400 MG CAPSULE (FP) PO SCH ×2 (10:10→21:47)
[2019-04-02] MEDS: chlordiazePOXIDE HCL 10 MG CAPSULE PO SCH ×2 (10:10→22:03)
[2019-04-02 12:17] LABS: HEMATOCRIT 40.6 % (35.4-49); HEMOGLOBIN 13.8 GM/dL (11.7-16.9); MCH 30.5 pg (25.7-33.7); MCHC 33.9 g/dl (32.0-35.9); MEAN PLT VOLUME 8.2 fl (7.5-11.1); PLATELET COUNT 216 K/MM3 (134-434); RBC 4.51 M/mm3 (4.00-5.60); RDW 13.1 % (11.9-15.9); WHITE BLOOD COUNT 5.4 K/mm3 (4.0-10.0)
[2019-04-02 12:21] LABS: ALBUMIN 3.8 g/dl (3.4-5.0); BILIRUBIN,TOTAL 0.2 mg/dL (0.2-1); CREATININE 0.9 mg/dL (0.55-1.3); POTASSIUM 4.4 mmol/L (3.5-5.1); TOT PROT 6.8 g/dl (6.4-8.2)
[2019-04-02] MEDS: BACLOFEN 10 MG TABLET (FP) PO PRN (19:52)
[2019-04-02] MEDS: THIAMINE HCL 100 MG TABLET (FP) PO SCH (21:47)
[2019-04-02] MEDS: MELATONIN 5 MG TABLETS PO PRN (22:03)
[2019-04-03] MEDS: BUPRENORPHINE/NALOXONE 8 MG/2 MG FILM PACKET SL SCH ×2 (05:34→14:20)
[2019-04-03 09:11] VITALS: TEMP 97
[2019-04-03] MEDS: GABAPENTIN 400 MG CAPSULE (FP) PO SCH (10:23)
[2019-04-03] MEDS: PRENATAL VITAMINS W/ FOLIC ACID TABLET (FP) PO SCH (10:23)
[2019-04-03] MEDS: BACITRACIN/POLYMYXIN B SULFATE 15 GM TUBE TP SCH (10:24)
[2019-04-03 13:32] VITALS: BP 118/73; PULSE 66
[2019-04-03] MEDS: hydrOXYzine PAMOATE 25 MG CAPSULE (FP) PO PRN (14:27)
[2019-04-03] MEDS: BACLOFEN 10 MG TABLET (FP) PO PRN (14:28)
--- NOTE | 2019-04-03 16:27 | DS ---
[facility] Detox Discharge Summary Admission Date: 03/29/19 Discharge Date: 04/03/19 - History Present History: Alcohol Dependence, Opioid Dependence, Sedative Dependence Additional Comments: [facility]. PATIENT WAS DISCHARGED FROM DETOX UNIT TO BE TAKEN OVER TO REHAB UNIT IN STABLE MEDICAL CONDITION. Pertinent Past History: HTN, Histroy OF Traumatic Brain Injury (With Subsequent Resultant Coma), Bipolar Disorder, Depression, Histroy Of Seizures (Due To Benzodiazepine Withdrawal), G.E.R.D., Hep C, History Of Suboxone Maintenance Therapy, Nicotine Dependence, History Of A.D.H.D. - Physical Exam Results Vital Signs: Vital Signs Temperature 97.0 F L 04/03/19 13:31 Pulse Rate 66 04/03/19 13:31 Respiratory Rate 18 04/03/19 13:31 Blood Pressure 118/73 04/03/19 13:31 O2 Sat by Pulse Oximetry (%) Pertinent Admission Physical Exam Findings: WITHDRAWAL SYMPTOMS. Laboratory Tests 04/02/19 04/02/19 04/02/19 10:45 10:45 10:45 WBC 5.4 RBC 4.51 Hgb 13.8 Hct 40.6 MCV 90.0 MCH 30.5 MCHC 33.9 RDW 13.1 Plt Count 216 MPV 8.2 Sodium 139 Potassium 4.4 Chloride 103 Carbon Dioxide 32 Anion Gap 4 L BUN 17.0 Creatinine 0.9 Est GFR (CKD-EPI)AfAm 123.39 Est GFR (CKD-EPI)NonAf 106.46 Random Glucose 78 Calcium 9.0 Total Bilirubin 0.2 AST 26 ALT 32 Alkaline Phosphatase 106 Total Protein 6.8 Albumin 3.8 RPR Titer Nonreactive LABS NOTED. - Treatment Hospital Course: Detox Protocol Followed, Detoxed Safely, Responded well, Discharged Condition Good, Rehab Referral Accepted Patient has Accepted a [facility] [place] - Medication Discharge Medications: Ambulatory Orders Buprenorphine/Naloxone [Suboxone 8Mg/2Mg Sl Film -] 1 each SL TID 01/28/17 Bupropion HCl [Wellbutrin Xl] 300 mg PO BID 01/28/17 Gabapentin 800 mg PO BID 01/28/17 Baclofen 10 mg PO BID 03/29/19 - Diagnosis (1) Alcohol dependence Status: Acute Qualifiers: Substance use status: in withdrawal Complication of substance-induced condition: uncomplicated Qualified Code(s): F10.230 - Alcohol dependence with withdrawal, uncomplicated (2) History of ADHD Status: Chronic (3) History of bipolar disorder Status: Chronic (4) Nicotine dependence Status: Chronic Qualifiers: Nicotine product type: cigarettes Substance use status: uncomplicated Qualified Code(s): F17.210 - Nicotine dependence, cigarettes, uncomplicated (5) Non-compliance Status: Chronic (6) Opioid dependence on agonist therapy Status: Chronic (7) Sedative, hypnotic or anxiolytic dependence with withdrawal, uncomplicated Status: Acute (8) Substance induced mood disorder Status: Chronic - AMA Did Patient Leave Against Medical Advice: No
== END 2019-04-03 15:15 | disposition other institution (70) | DRG 773 ==
LOC: YASAS 10:47 → Y3N 18:09
PROVIDERS: ADMIT Surgery; ATTEND Surgery
PROC: HZ2ZZZZ Detoxification Services for Substance Abuse Treatment (ICD-10-PCS; principal; 2019-03-29)
DX: F10.230 Alcohol dependence with withdrawal, uncomplicated (principal); F13.230 Sedative, hypnotic or anxiolytic dependence with withdrawal, uncomplicated; F11.20 Opioid dependence, uncomplicated; F17.210 Nicotine dependence, cigarettes, uncomplicated; F19.24 Other psychoactive substance dependence with psychoactive substance-induced mood disorder; F31.9 Bipolar disorder, unspecified; F90.9 Attention-deficit hyperactivity disorder, unspecified type; G40.509 Epileptic seizures related to external causes, not intractable, without status epilepticus; I10 Essential (primary) hypertension; Z91.19 Patient's noncompliance with other medical treatment and regimen; Z87.820 Personal history of traumatic brain injury
CPT/HCPCS: 36415; 80053; 85027; 86593; J0475

== ENCOUNTER 2019-04-03 15:32 | Inpatient (IN) | payer OTHER ==
[2019-04-03] MEDS ORDERED: MAGNESIUM CITRATE 300 ML BOTTLE PO PRN (16:32)
[2019-04-03] MEDS ORDERED: MAG HYDROX/AL HYDROX/SIMETH 30 ML UNIT-DOSE CUP PO PRN (16:32)
[2019-04-03] MEDS ORDERED: P-EPHED 60MG/TRIPROLIDI 2.5MG TABLET PO PRN (16:32)
[2019-04-03] MEDS ORDERED: MAGNESIUM HYDROX 2400MG/30ML ORAL SUSPENSION 30 ML CUP PO PRN (16:32)
[2019-04-03] MEDS ORDERED: ACETAMINOPHEN 325 MG TABLET (FP) PO PRN (16:32)
[2019-04-03] MEDS ORDERED: guaiFENesin 200 MG/10 ML 10 ML UNIT-DOSE CUPS PO PRN (16:32)
[2019-04-03] MEDS ORDERED: MENTHOL/PHENOL 1 EACH UD MM PRN (16:32)
--- NOTE | 2019-04-03 16:34 | HP ---
[facility] Rehab Assess/Revision - Admission History Admitted to Rehab from: [facility] Date of Admission to Rehab: 04/03/2019 - Vital signs Vital Signs: Vital Signs Period Temp Pulse Resp BP Sys/Cole Pulse Ox Last 24 Hr 58 18 115/71 - Findings Detox History & Physical reviewed: Yes Concur with findings: Yes Comments/Additional Findings: PATIENT'S MEDICAL / MEDICATION HISTORY REVIEWED PRIOR TO DISCHARGE FROM DETOX UNIT. PATIENT WAS DISCHARGED FROM DETOX UNIT TO BE TAKEN OVER TO REHAB UNIT IN STABLE MEDICAL CONDITION. Inpatient Rehab Admission - Rehab Decision to Admit Inpatient rehab admission?: Yes - Initial Determination Are CD services needed?: Yes Free of communicable disease: Yes Not in need of hospitalization: Yes - Rehab Admission Criteria Previous failed treatment: Yes Poor recovery environment: Yes Comorbidities: Yes Lacks judgement: No Patient is meeting Inpatient Rehab admission criteria:: Yes
[2019-04-03] MEDS: THIAMINE HCL 100 MG TABLET (FP) PO SCH (21:18)
[2019-04-03] MEDS: MELATONIN 5 MG TABLETS PO PRN (21:18)
[2019-04-03] MEDS: GABAPENTIN 400 MG CAPSULE (FP) PO SCH (21:18)
[2019-04-03] MEDS: BACLOFEN 10 MG TABLET (FP) PO PRN (21:21)
[2019-04-03] MEDS: BUPRENORPHINE/NALOXONE 8 MG/2 MG FILM PACKET SL SCH (21:21)
[2019-04-04] MEDS: hydrOXYzine PAMOATE 50 MG CAPSULE (FP) PO PRN ×2 (01:30→14:41)
[2019-04-04] MEDS: BUPRENORPHINE/NALOXONE 8 MG/2 MG FILM PACKET SL SCH ×3 (07:06→21:20)
[2019-04-04] MEDS: GABAPENTIN 400 MG CAPSULE (FP) PO SCH ×2 (09:51→21:18)
[2019-04-04] MEDS: PRENATAL VITAMINS W/ FOLIC ACID TABLET (FP) PO SCH (09:51)
--- NOTE | 2019-04-04 12:05 | PN ---
[facility] Progress Note Note: Patient requests Wellbutrin XL 300 mg/day. He was seen by Dr Kumar on 03/30/19 while admitted to detox and he was prescribed Wellbutrin XL 150 mg/day. He reported to Dr Kumar that he was taking Wellburtrin XL 300 mg/day prescribed by his primary care physician
[2019-04-04] MEDS: BACLOFEN 10 MG TABLET (FP) PO PRN (14:41)
[2019-04-04] MEDS: THIAMINE HCL 100 MG TABLET (FP) PO SCH (21:18)
[2019-04-05] MEDS: BUPRENORPHINE/NALOXONE 8 MG/2 MG FILM PACKET SL SCH ×3 (07:20→21:24)
[2019-04-05] MEDS: PRENATAL VITAMINS W/ FOLIC ACID TABLET (FP) PO SCH (10:11)
[2019-04-05] MEDS: GABAPENTIN 400 MG CAPSULE (FP) PO SCH ×2 (10:11→21:24)
[2019-04-05] MEDS ORDERED: CARBAMIDE PEROXIDE 6.5% OTIC 15 ML BOTTLE AU ONE (12:35)
--- NOTE | 2019-04-05 12:41 | PN ---
[facility] Progress Note Note: PT C/O CLOGGED EAR AND HX OF TINNITIS. REQUESTING FOR EAR WAX REMOVER Vital Signs - 24 hr 04/05/19 04/05/19 04/05/19 00:30 03:30 06:47 Temperature 97.4 F L Pulse Rate 60 Respiratory 18 18 16 Rate Blood Pressure 121/74 HEENT:PERRLA EAR LOBS WNL-NO LESIONS;EXTERNAL EAR CANALS WITH WAX BUILD UP. NO REDNESS OR SWELLING; TMs WNL. A:CERUMEN, BILATERALLY PLAN:DEBROX DIRECTED X 3 DAYS, FIRST TREATMENT NOW.
[2019-04-05] MEDS: BACLOFEN 10 MG TABLET (FP) PO PRN ×2 (14:37→23:03)
[2019-04-05] MEDS: hydrOXYzine PAMOATE 50 MG CAPSULE (FP) PO PRN ×2 (14:37→23:03)
--- NOTE | 2019-04-05 16:11 | PN ---
S Progress Note Note: PT REQUESTS TO CHANGE SUBOXONE DOSE AND SCHEDULE. REPORTS HE TAKES SUBOXONE 8 MG /2MG 2 FILMS SL AT 6A.M DAILY AND 8 MG/2MG 1 FILM SL AT 2:00 P.M DAILY. Vital Signs - 24 hr 04/05/19 04/05/19 04/05/19 00:30 03:30 06:47 Temperature 97.4 F L Pulse Rate 60 Respiratory 18 18 16 Rate Blood Pressure 121/74 PLAN:D/W PT I WILL CHANGE SCHEDULE STARTING 04/06/19 PER PT'S REQUEST. PT AGREES W/POC.
[2019-04-05] MEDS: THIAMINE HCL 100 MG TABLET (FP) PO SCH (21:24)
[2019-04-05] MEDS: CARBAMIDE PEROXIDE 6.5% OTIC 15 ML BOTTLE AU SCH (21:25)
[2019-04-05] MEDS: NICOTINE POLACRILEX 2 MG GUM BUC PRN (23:04)
[2019-04-06] MEDS: ONDANSETRON *ODT* 4 MG TABLET SL PRN ×2 (01:49→21:19)
[2019-04-06] MEDS: LOPERAMIDE HCL 2 MG CAPSULE PO PRN ×2 (03:03→22:45)
[2019-04-06] MEDS: BUPRENORPHINE/NALOXONE 8 MG/2 MG FILM PACKET SL SCH ×2 (06:47→14:24)
[2019-04-06] MEDS: GABAPENTIN 400 MG CAPSULE (FP) PO SCH ×2 (10:03→21:17)
[2019-04-06] MEDS: PRENATAL VITAMINS W/ FOLIC ACID TABLET (FP) PO SCH (10:03)
[2019-04-06] MEDS: CARBAMIDE PEROXIDE 6.5% OTIC 15 ML BOTTLE AU SCH ×2 (10:05→21:18)
--- NOTE | 2019-04-06 11:10 | PN ---
S Progress Note Note: NURSE REPORTS PT C/O N/V/D AND RECEIVED ZOFRAN SL AND IMODIUM. Vital Signs - 24 hr 04/06/19 04/06/19 03:30 06:39 Temperature 98.3 F Pulse Rate 91 H Respiratory 18 18 Rate Blood Pressure 138/76 MONITOR EFFECTIVENESS. LOMOTIL IF NOT BETTER TIGAN INJ. IF STILL N/V.
[2019-04-06] MEDS: hydrOXYzine PAMOATE 50 MG CAPSULE (FP) PO PRN ×2 (12:00→21:19)
[2019-04-06] MEDS: BACLOFEN 10 MG TABLET (FP) PO PRN (12:00)
[2019-04-06] MEDS: NICOTINE 14 MG/24 HOURS TOPICAL PATCH TD SCH (14:21)
[2019-04-06] MEDS: THIAMINE HCL 100 MG TABLET (FP) PO SCH (21:18)
[2019-04-06] MEDS: MELATONIN 5 MG TABLETS PO PRN (21:19)
[2019-04-06] MEDS ORDERED: TRIMETHOBENZAMIDE HCL 200MG/2ML INJ IM ONE (22:18)
[2019-04-07] MEDS: hydrOXYzine PAMOATE 50 MG CAPSULE (FP) PO PRN ×3 (01:52→21:30)
[2019-04-07] MEDS: BUPRENORPHINE/NALOXONE 8 MG/2 MG FILM PACKET SL SCH ×2 (07:34→13:17)
[2019-04-07] MEDS: GABAPENTIN 400 MG CAPSULE (FP) PO SCH ×2 (09:56→21:30)
[2019-04-07] MEDS: NICOTINE 14 MG/24 HOURS TOPICAL PATCH TD SCH (09:56)
[2019-04-07] MEDS: CARBAMIDE PEROXIDE 6.5% OTIC 15 ML BOTTLE AU SCH ×2 (09:57→21:31)
[2019-04-07] MEDS: PRENATAL VITAMINS W/ FOLIC ACID TABLET (FP) PO SCH (09:57)
[2019-04-07] MEDS: BACLOFEN 10 MG TABLET (FP) PO PRN ×2 (11:10→21:30)
[2019-04-07] MEDS: LOPERAMIDE HCL 2 MG CAPSULE PO PRN (11:10)
[2019-04-07] MEDS: ONDANSETRON *ODT* 4 MG TABLET SL PRN (11:57)
--- NOTE | 2019-04-07 12:06 | PN ---
[facility] Progress Note (SOAP) Subjective: Abdominal pain, chills, N/V diarrhea Objective: 04/07/19 12:02 Last Vital Signs Temp Pulse Resp BP Pulse Ox 98.8 F 76 18 118/78 04/06/19 22:14 04/06/19 22:14 04/07/19 06:30 04/06/19 22:14 A&Ox3, ambulating ad-nicholas on the floor, no apparent distress Chest: Lungs clear in all mukherjee, no adventitious sounds CVS: S1S2, RRR Abdomen: BS x4, ND, mild tenderness to the LUQ, no mass Assessment: 04/07/19 12:06 Patient reports several episodes of nausea and vomiting with diarrhea for 2 days. He reports vomiting with a small amount of blood last night, vomited this morning with no blood. Last episode of vomiting was before breakfast Possible gastroenteritis Plan: Discussed with patient gastroenteritis is usually self limiting Discussed ER evaluation but patient wants that deferred until further vomiting Will continue zofran and monitor Provide clear liquid diet for lunch Encourage oral fluid intake d/w nursing
[2019-04-07] MEDS: IBUPROFEN 400 MG TABLET (FP) PO PRN (13:36)
--- NOTE | 2019-04-07 14:23 | PN ---
[facility] Progress Note Note: Patient with another episode of loose stool after lunch, continues to c/o chills and abdominal discomfort, no further vomiting. He will be transferred to the ED for further evaluation, report given to .
[2019-04-07] MEDS: THIAMINE HCL 100 MG TABLET (FP) PO SCH (21:30)
[2019-04-08] MEDS: BUPRENORPHINE/NALOXONE 8 MG/2 MG FILM PACKET SL SCH ×2 (06:59→13:56)
[2019-04-08] MEDS: NICOTINE 14 MG/24 HOURS TOPICAL PATCH TD SCH (10:06)
[2019-04-08] MEDS: GABAPENTIN 400 MG CAPSULE (FP) PO SCH ×2 (10:06→21:27)
[2019-04-08] MEDS: PRENATAL VITAMINS W/ FOLIC ACID TABLET (FP) PO SCH (10:06)
[2019-04-08] MEDS: hydrOXYzine PAMOATE 50 MG CAPSULE (FP) PO PRN ×2 (10:08→20:25)
[2019-04-08] MEDS: BACLOFEN 10 MG TABLET (FP) PO PRN ×2 (10:08→21:27)
[2019-04-08] MEDS: IBUPROFEN 400 MG TABLET (FP) PO PRN ×2 (10:08→20:25)
[2019-04-08] MEDS: CARBAMIDE PEROXIDE 6.5% OTIC 15 ML BOTTLE AU SCH (10:10)
[2019-04-08] MEDS: MELATONIN 5 MG TABLETS PO PRN (21:27)
[2019-04-08] MEDS: THIAMINE HCL 100 MG TABLET (FP) PO SCH (21:28)
[2019-04-09] MEDS: BUPRENORPHINE/NALOXONE 8 MG/2 MG FILM PACKET SL SCH ×2 (06:09→14:25)
[2019-04-09] MEDS: PRENATAL VITAMINS W/ FOLIC ACID TABLET (FP) PO SCH (10:30)
[2019-04-09] MEDS: GABAPENTIN 400 MG CAPSULE (FP) PO SCH ×2 (10:30→21:11)
[2019-04-09] MEDS: hydrOXYzine PAMOATE 50 MG CAPSULE (FP) PO PRN ×2 (10:31→17:49)
[2019-04-09] MEDS: BACLOFEN 10 MG TABLET (FP) PO PRN (10:31)
[2019-04-09] MEDS: IBUPROFEN 400 MG TABLET (FP) PO PRN ×2 (10:31→17:49)
[2019-04-09] MEDS: NICOTINE 14 MG/24 HOURS TOPICAL PATCH TD SCH (11:26)
[2019-04-09] MEDS: NICOTINE POLACRILEX 2 MG GUM BUC PRN (11:28)
[2019-04-09] MEDS ORDERED: RANITIDINE HCL 150 MG TABLET (FP) PO ONE (11:40)
--- NOTE | 2019-04-09 11:45 | PN ---
[facility] Progress Note Note: PT REQUESTING ZANTAC STATING "I HAVE GASTRITIS AND WAS TOLD TO TAKE ZANTAC AT THE EMERGENCY ROOM AND IT WAS NOT ORDERED". PT DENIES ANY FURTHER SYMPTOMS OF N /V/D AT THIS TIME. REPORTS STOMACH REFLUX. DECLINED GASTROENTERITIS DIET(BRAT) RECOMMENDATION. HOWEVER, INSIST ON ZANTAC ONLY. Vital Signs 04/09/19 06:51 Temperature 97.3 F L Pulse Rate 56 L Respiratory 18 Rate Blood Pressure 130/66 ZANTAC 150 MG PO BID ORDERED.
[2019-04-09] MEDS: MELATONIN 5 MG TABLETS PO PRN (21:11)
[2019-04-09] MEDS: RANITIDINE HCL 150 MG TABLET (FP) PO SCH (21:11)
[2019-04-09] MEDS: THIAMINE HCL 100 MG TABLET (FP) PO SCH (21:12)
[2019-04-10] MEDS: BUPRENORPHINE/NALOXONE 8 MG/2 MG FILM PACKET SL SCH ×2 (06:37→13:52)
[2019-04-10] MEDS: GABAPENTIN 400 MG CAPSULE (FP) PO SCH ×2 (09:59→21:19)
[2019-04-10] MEDS: PRENATAL VITAMINS W/ FOLIC ACID TABLET (FP) PO SCH (10:00)
[2019-04-10] MEDS: RANITIDINE HCL 150 MG TABLET (FP) PO SCH ×2 (10:00→21:19)
[2019-04-10] MEDS: NICOTINE 14 MG/24 HOURS TOPICAL PATCH TD SCH (10:00)
[2019-04-10] MEDS: NICOTINE POLACRILEX 2 MG GUM BUC PRN (10:02)
--- NOTE | 2019-04-10 12:16 | PN ---
"S Progress Note Note: BELOW INFORMATION FROM [facility] PER ADMISSION H/P OF 03/29/19 PT IS AN ESTABLISHED MAT PT WITH A PROVIDER PRACTICE. REPORTS HE HAS OWN SUBOXONE FILMS. PT WILL FOLLOW UP WITH HIS PRESCRIBER(S) AFTER REHAB. This report was requested by: Angie Galaviz | Reference #: [id number] Others' Prescriptions Patient Name: Rolf Gould Date: 1980 Address: [address] [place] [address] Sex: Male Rx Written Rx Dispensed Drug Quantity Days Supply Prescriber Name 03/21/2019 03/21/2019 suboxone 8 mg-2 mg sl film 42 14 Argenis Tapia 03/08/2019 03/08/2019 suboxone 8 mg-2 mg sl film 30 10 Vern Alvaradoradha Sandee 02/20/2019 02/23/2019 suboxone 8 mg-2 mg sl film 48 16 Juan Davis Patient Name: Rolf Gould Date: 1980 Address: [address] [place] [address] Sex: Male Rx Written Rx Dispensed Drug Quantity Days Supply Prescriber Name 03/06/2019 03/06/2019 buprenorphine-naloxone 4-1 mg sl film 18 3 Nico Hernandez () 03/05/2019 03/05/2019 lorazepam 1 mg tablet 9 3 Nico Hernandez () Patient Name: Rolf Gould Date: 1980 Address: [address] [place] [address] Sex: Male Rx Written Rx Dispensed Drug Quantity Days Supply Prescriber Name 02/07/2019 02/09/2019 suboxone 8 mg-2 mg sl film 39 13 Juvenal Alegre MD 02/02/2019 02/03/2019 suboxone 8 mg-2 mg sl film 18 6 Alejandra Goel 01/10/2019 01/23/2019 suboxone 8 mg-2 mg sl film 33 11 Dia Galvez) 01/10/2019 01/12/2019 suboxone 8 mg-2 mg sl film 33 11 Dia Galvez) 12/19/2018 12/21/2018 suboxone 8 mg-2 mg sl film 45 15 Juan Davis 12/06/2018 12/06/2018 suboxone 8 mg-2 mg sl film 45 15 Deuce Garrido 11/21/2018 11/23/2018 suboxone 8 mg-2 mg sl film 45 15 Juvenal Alegre MD 11/09/2018 11/09/2018 suboxone 8 mg-2 mg sl film 45 15 Juvenal Alegre MD 10/25/2018 10/25/2018 suboxone 8 mg-2 mg sl film 45 15 Juvenal Alegre MD 10/11/2018 10/11/2018 suboxone 8 mg-2 mg sl film 48 16 Juvenal Alegre MD 09/26/2018 09/26/2018 suboxone 8 mg-2 mg sl film 48 16 Lawanda Holder Patient Name: Rolf Gould Date: 1980 Address: [place] [address] Sex: Male Rx Written Rx Dispensed Drug Quantity Days Supply Prescriber Name 10/06/2018 10/07/2018 lorazepam 2 mg tablet 8 2 Kyle Young ([place]) Patient Name: Rolf Gould Date: 1980 Address: [address] [place] [address] Sex: Male Rx Written Rx Dispensed Drug Quantity Days Supply Prescriber Name 07/24/2018 07/24/2018 suboxone 4 mg-1 mg sl film 39 20 Giovanni Monsivais Patient Name: Rolf Gould Date: 1980 Address: [address] [place] [address] Sex: Male Rx Written Rx Dispensed Drug Quantity Days Supply Prescriber Name 05/10/2018 05/10/2018 buprenorphine 8 mg tablet sl 60 30 Jose Rafael Acuna MD 05/10/2018 05/10/2018 alprazolam 1 mg tablet 30 30 Jose Rafael Acuna MD"
[2019-04-10] MEDS: hydrOXYzine PAMOATE 50 MG CAPSULE (FP) PO PRN ×2 (12:41→21:20)
[2019-04-10] MEDS: BACLOFEN 10 MG TABLET (FP) PO PRN ×2 (12:41→21:19)
[2019-04-10] MEDS: THIAMINE HCL 100 MG TABLET (FP) PO SCH (21:20)
[2019-04-11] MEDS: BUPRENORPHINE/NALOXONE 8 MG/2 MG FILM PACKET SL SCH ×2 (07:03→14:19)
[2019-04-11] MEDS: PRENATAL VITAMINS W/ FOLIC ACID TABLET (FP) PO SCH (09:59)
[2019-04-11] MEDS: GABAPENTIN 400 MG CAPSULE (FP) PO SCH ×2 (09:59→21:10)
[2019-04-11] MEDS: NICOTINE 14 MG/24 HOURS TOPICAL PATCH TD SCH (10:00)
[2019-04-11] MEDS: RANITIDINE HCL 150 MG TABLET (FP) PO SCH ×2 (10:00→21:10)
[2019-04-11] MEDS: BACLOFEN 10 MG TABLET (FP) PO PRN ×2 (10:01→21:12)
[2019-04-11] MEDS: hydrOXYzine PAMOATE 50 MG CAPSULE (FP) PO PRN ×2 (10:02→21:10)
[2019-04-11] MEDS: IBUPROFEN 400 MG TABLET (FP) PO PRN ×2 (10:03→21:11)
[2019-04-11] MEDS: CARBAMIDE PEROXIDE 6.5% OTIC 15 ML BOTTLE AU SCH ×2 (14:19→21:12)
[2019-04-11] MEDS: MELATONIN 5 MG TABLETS PO PRN (21:10)
[2019-04-11] MEDS: THIAMINE HCL 100 MG TABLET (FP) PO SCH (21:10)
[2019-04-12] MEDS: BUPRENORPHINE/NALOXONE 8 MG/2 MG FILM PACKET SL SCH ×2 (06:11→14:23)
[2019-04-12] MEDS: RANITIDINE HCL 150 MG TABLET (FP) PO SCH ×2 (10:01→21:23)
[2019-04-12] MEDS: NICOTINE 14 MG/24 HOURS TOPICAL PATCH TD SCH (10:01)
[2019-04-12] MEDS: PRENATAL VITAMINS W/ FOLIC ACID TABLET (FP) PO SCH (10:01)
[2019-04-12] MEDS: hydrOXYzine PAMOATE 50 MG CAPSULE (FP) PO PRN ×2 (10:01→21:24)
[2019-04-12] MEDS: IBUPROFEN 400 MG TABLET (FP) PO PRN (10:01)
[2019-04-12] MEDS: GABAPENTIN 400 MG CAPSULE (FP) PO SCH ×2 (10:01→21:22)
[2019-04-12] MEDS: NICOTINE POLACRILEX 2 MG GUM BUC PRN (10:01)
[2019-04-12] MEDS: BACLOFEN 10 MG TABLET (FP) PO PRN ×2 (10:01→21:24)
[2019-04-12] MEDS: CARBAMIDE PEROXIDE 6.5% OTIC 15 ML BOTTLE AU SCH ×2 (10:03→21:25)
[2019-04-12] MEDS: THIAMINE HCL 100 MG TABLET (FP) PO SCH (21:23)
[2019-04-12] MEDS: MELATONIN 5 MG TABLETS PO PRN (21:24)
[2019-04-13] MEDS: BUPRENORPHINE/NALOXONE 8 MG/2 MG FILM PACKET SL SCH ×2 (06:57→14:17)
[2019-04-13] MEDS: BACLOFEN 10 MG TABLET (FP) PO PRN ×2 (06:59→21:18)
[2019-04-13] MEDS: IBUPROFEN 400 MG TABLET (FP) PO PRN ×2 (07:00→21:18)
[2019-04-13] MEDS: hydrOXYzine PAMOATE 50 MG CAPSULE (FP) PO PRN ×2 (07:00→21:18)
[2019-04-13] MEDS: GABAPENTIN 400 MG CAPSULE (FP) PO SCH ×2 (10:09→21:16)
[2019-04-13] MEDS: RANITIDINE HCL 150 MG TABLET (FP) PO SCH ×2 (10:09→21:16)
[2019-04-13] MEDS: NICOTINE 14 MG/24 HOURS TOPICAL PATCH TD SCH (10:09)
[2019-04-13] MEDS: PRENATAL VITAMINS W/ FOLIC ACID TABLET (FP) PO SCH (10:09)
[2019-04-13] MEDS: CARBAMIDE PEROXIDE 6.5% OTIC 15 ML BOTTLE AU SCH ×2 (10:10→22:27)
[2019-04-13] MEDS: THIAMINE HCL 100 MG TABLET (FP) PO SCH (21:16)
[2019-04-13] MEDS: MELATONIN 5 MG TABLETS PO PRN (21:18)
[2019-04-14] MEDS ORDERED: BUPRENORPHINE/NALOXONE 8 MG/2 MG FILM PACKET SL ONE (08:58)
--- NOTE | 2019-04-14 09:05 | PN ---
[facility] Progress Note Note: patient has been on suboxone 8 mgs/2mgs film sl 2 films at 0600 and subboxone 8mgs/2mgs sl film at 14.00 ,renew
[2019-04-14] MEDS: PRENATAL VITAMINS W/ FOLIC ACID TABLET (FP) PO SCH (09:50)
[2019-04-14] MEDS: GABAPENTIN 400 MG CAPSULE (FP) PO SCH ×2 (09:50→21:13)
[2019-04-14] MEDS: NICOTINE 14 MG/24 HOURS TOPICAL PATCH TD SCH (09:50)
[2019-04-14] MEDS: RANITIDINE HCL 150 MG TABLET (FP) PO SCH ×2 (09:50→21:15)
[2019-04-14] MEDS: hydrOXYzine PAMOATE 50 MG CAPSULE (FP) PO PRN ×2 (09:51→21:13)
[2019-04-14] MEDS: BACLOFEN 10 MG TABLET (FP) PO PRN ×2 (09:51→21:14)
[2019-04-14] MEDS: IBUPROFEN 400 MG TABLET (FP) PO PRN (09:51)
[2019-04-14] MEDS: CARBAMIDE PEROXIDE 6.5% OTIC 15 ML BOTTLE AU SCH ×2 (09:51→21:15)
[2019-04-14] MEDS: BUPRENORPHINE/NALOXONE 8 MG/2 MG FILM PACKET SL SCH (14:13)
[2019-04-14] MEDS: MELATONIN 5 MG TABLETS PO PRN (21:13)
[2019-04-14] MEDS: THIAMINE HCL 100 MG TABLET (FP) PO SCH (21:13)
[2019-04-15] MEDS: BUPRENORPHINE/NALOXONE 8 MG/2 MG FILM PACKET SL SCH ×2 (07:17→14:17)
[2019-04-15] MEDS: PRENATAL VITAMINS W/ FOLIC ACID TABLET (FP) PO SCH (10:08)
[2019-04-15] MEDS: GABAPENTIN 400 MG CAPSULE (FP) PO SCH ×2 (10:08→21:14)
[2019-04-15] MEDS: NICOTINE 14 MG/24 HOURS TOPICAL PATCH TD SCH (10:08)
[2019-04-15] MEDS: RANITIDINE HCL 150 MG TABLET (FP) PO SCH ×2 (10:08→21:14)
[2019-04-15] MEDS: CARBAMIDE PEROXIDE 6.5% OTIC 15 ML BOTTLE AU SCH ×2 (10:09→21:16)
[2019-04-15] MEDS: NICOTINE POLACRILEX 2 MG GUM BUC PRN (10:11)
[2019-04-15] MEDS: IBUPROFEN 400 MG TABLET (FP) PO PRN (14:17)
[2019-04-15] MEDS: BACLOFEN 10 MG TABLET (FP) PO PRN ×2 (14:17→21:16)
[2019-04-15] MEDS: hydrOXYzine PAMOATE 50 MG CAPSULE (FP) PO PRN ×2 (14:17→21:15)
[2019-04-15] MEDS: MELATONIN 5 MG TABLETS PO PRN (21:14)
[2019-04-15] MEDS: THIAMINE HCL 100 MG TABLET (FP) PO SCH (21:14)
[2019-04-16] MEDS: BUPRENORPHINE/NALOXONE 8 MG/2 MG FILM PACKET SL SCH ×2 (06:50→14:04)
[2019-04-16] MEDS: GABAPENTIN 400 MG CAPSULE (FP) PO SCH ×2 (10:08→21:14)
[2019-04-16] MEDS: RANITIDINE HCL 150 MG TABLET (FP) PO SCH ×2 (10:08→21:14)
[2019-04-16] MEDS: PRENATAL VITAMINS W/ FOLIC ACID TABLET (FP) PO SCH (10:08)
[2019-04-16] MEDS: NICOTINE 14 MG/24 HOURS TOPICAL PATCH TD SCH (10:09)
[2019-04-16] MEDS: CARBAMIDE PEROXIDE 6.5% OTIC 15 ML BOTTLE AU SCH ×2 (10:11→21:17)
[2019-04-16] MEDS: hydrOXYzine PAMOATE 50 MG CAPSULE (FP) PO PRN ×2 (10:12→21:15)
[2019-04-16] MEDS: BACLOFEN 10 MG TABLET (FP) PO PRN ×2 (10:12→21:16)
[2019-04-16] MEDS: IBUPROFEN 400 MG TABLET (FP) PO PRN (10:13)
[2019-04-16] MEDS: THIAMINE HCL 100 MG TABLET (FP) PO SCH (21:15)
[2019-04-17] MEDS: BUPRENORPHINE/NALOXONE 8 MG/2 MG FILM PACKET SL SCH ×2 (06:26→14:14)
[2019-04-17] MEDS: hydrOXYzine PAMOATE 50 MG CAPSULE (FP) PO PRN ×2 (09:47→21:23)
[2019-04-17] MEDS: GABAPENTIN 400 MG CAPSULE (FP) PO SCH ×2 (09:47→21:20)
[2019-04-17] MEDS: PRENATAL VITAMINS W/ FOLIC ACID TABLET (FP) PO SCH (09:47)
[2019-04-17] MEDS: RANITIDINE HCL 150 MG TABLET (FP) PO SCH ×2 (09:47→21:23)
[2019-04-17] MEDS: IBUPROFEN 400 MG TABLET (FP) PO PRN ×2 (09:48→21:22)
[2019-04-17] MEDS: NICOTINE 14 MG/24 HOURS TOPICAL PATCH TD SCH (09:48)
[2019-04-17] MEDS: BACLOFEN 10 MG TABLET (FP) PO PRN ×2 (09:48→21:21)
[2019-04-17] MEDS: CARBAMIDE PEROXIDE 6.5% OTIC 15 ML BOTTLE AU SCH ×2 (09:50→21:23)
--- NOTE | 2019-04-17 14:19 | PN ---
[facility] Progress Note Note: Patient is scheduled for discharge tomorrow. Script for 30 days supply of Wellbutrin XL 300 mg/day will be electronically transmitted to [facility] at [address] [place], [place] [id number]
--- NOTE | 2019-04-17 15:40 | PN ---
[facility] Progress Note (SOAP) Subjective: Patient to be discharged tomorrow. Objective: Medically stable for discharge. Heart sounds regular, lungs clear, abd soft, non -tender, non-distended. Vital Signs (72 hours) 04/15/19 04/15/19 04/16/19 03:30 06:52 00:30 Temperature 97.5 F L Pulse Rate 62 Respiratory 18 18 17 Rate Blood Pressure 121/72 04/16/19 04/16/19 04/17/19 03:30 06:24 03:30 Temperature 97.7 F Pulse Rate 61 Respiratory 18 18 18 Rate Blood Pressure 116/70 04/17/19 06:46 Temperature 97.4 F L Pulse Rate 67 Respiratory 16 Rate Blood Pressure 108/60 04/17/19 15:35 04/17/19 15:36 Assessment: Medically stable for discharge. Discharge Dx: opioid dependence Cannabis dependence cocaine dependence Hep C positive. 04/17/19 15:36 04/17/19 15:37 Plan: Patient will go to [facility] for aftercare. Receives care from Dr. Lewis at [address] [place] [address]. Prescriptions for medications sent to [place], except for Suboxone. Client states on 04/10/2019 that he had a supply at home. Please see note of that date.
[2019-04-17] MEDS: THIAMINE HCL 100 MG TABLET (FP) PO SCH (21:21)
[2019-04-17] MEDS: MELATONIN 5 MG TABLETS PO PRN (21:24)
[2019-04-18] MEDS: BACLOFEN 10 MG TABLET (FP) PO PRN (06:27)
[2019-04-18] MEDS: hydrOXYzine PAMOATE 50 MG CAPSULE (FP) PO PRN (06:27)
[2019-04-18] MEDS: BUPRENORPHINE/NALOXONE 8 MG/2 MG FILM PACKET SL SCH (06:28)
[2019-04-18 06:46] VITALS: BP 114/66; PULSE 73; TEMP 98.5
== END 2019-04-18 07:15 | disposition home or self-care (01) | DRG 772 ==
LOC: YASAS 15:32 → Y5N 15:33
PROVIDERS: ADMIT Neuromusculoskeletal Medicine & OMM; ATTEND Neuromusculoskeletal Medicine & OMM
PROC: HZ42ZZZ Group Counseling for Substance Abuse Treatment, Cognitive-Behavioral (ICD-10-PCS; principal; 2019-04-03)
DX: F11.20 Opioid dependence, uncomplicated (principal); F13.20 Sedative, hypnotic or anxiolytic dependence, uncomplicated; F10.20 Alcohol dependence, uncomplicated; F14.20 Cocaine dependence, uncomplicated; F12.20 Cannabis dependence, uncomplicated; F17.210 Nicotine dependence, cigarettes, uncomplicated; B18.2 Chronic viral hepatitis C; K21.9 Gastro-esophageal reflux disease without esophagitis; H61.23 Impacted cerumen, bilateral; R11.2 Nausea with vomiting, unspecified; R19.7 Diarrhea, unspecified; Z86.69 Personal history of other diseases of the nervous system and sense organs
CPT/HCPCS: J0475; Q0162

== ENCOUNTER 2019-04-07 15:47 | Emergency (ER) | payer OTHER ==
[2019-04-07 16:06] VITALS: BMI 28.9
[2019-04-07] MEDS ORDERED: FAMOTIDINE 20 MG/50 ML IVPB 20 MG/50 ML MG IVPB ONE ×2 (16:23→17:06)
[2019-04-07] MEDS ORDERED: SODIUM CHLORIDE 1,000 ML IV STA (16:23)
[2019-04-07 17:14] LABS: BASO % 0.4 % (0-2.0); EOS % 5.1 % (0-4.5); HEMATOCRIT 43.2 % (35.4-49); HEMOGLOBIN 14.8 GM/dL (11.7-16.9); LYMPH % 30.6 % (8-40); MCH 30.8 pg (25.7-33.7); MCHC 34.4 g/dl (32.0-35.9); MEAN CELL VOLUME 89.6 fl (80-96); MEAN PLT VOLUME 7.7 fl (7.5-11.1); MONO % 5.1 % (3.8-10.2); NEUT % 58.8 % (42.8-82.8); PLATELET COUNT 246 K/MM3 (134-434); RBC 4.82 M/mm3 (4.00-5.60); RDW 13.1 % (11.9-15.9); WHITE BLOOD COUNT 5.9 K/mm3 (4.0-10.0)
[2019-04-07] MEDS ORDERED: MAG HYDROX/AL HYDROX/SIMETH -MYLANTA- ORAL SUSPENSION PO ONE (17:32)
[2019-04-07] MEDS ORDERED: SODIUM CHLORIDE 0.9% 500 ML INFUS.BAG IV ONE (17:32)
[2019-04-07] MEDS ORDERED: METOCLOPRAMIDE HCL INJECTION 10 MG/2 ML VIAL IVPUSH ONE (17:32)
[2019-04-07 17:37] LABS: ALBUMIN 4.1 g/dl (3.4-5.0); BILIRUBIN,TOTAL 0.5 mg/dL (0.2-1); BLOOD UREA NITROGEN 21.8 mg/dL (7-18); CALCIUM 8.8 mg/dL (8.5-10.1); CREATININE 1.1 mg/dL (0.55-1.3); POTASSIUM 3.8 mmol/L (3.5-5.1); TOT PROT 7.8 g/dl (6.4-8.2)
[2019-04-07] MEDS ORDERED: METOCLOPRAMIDE HCL INJECTION 10 MG/2 ML VIAL ONE (17:50)
[2019-04-07] MEDS ORDERED: MAG HYDROX/AL HYDROX/SIMETH 30 ML UNIT-DOSE CUP ONE (17:50)
--- NOTE | 2019-04-07 18:27 | PDOC ---
History of Present Illness - General Chief Complaint: Diarrhea Stated Complaint: DIARRHEA, NAUSEA, VOMITTING Time Seen by Provider: 04/07/19 16:05 - History of Present Illness Initial Comments: Rolf Gould is a 38yo man with a PMH of polysubstance abuse (alcohol, benzos, tobacco, heroin - on suboxone 1yr), HTN, bipolar disorder, TBI (2008, 2012, questionable last month) who presents from [facility] rehab with 3 days of frequent vomiting and watery diarrhea. He states that he was trying to manage without coming to the hospital, but he has been unable to tolerate any food or liquids. He additionally reports that he saw specks of blood in his vomit today. He has been unable to even drink any water. He was given "a dissolving medication" that did not help at rehab. Mr Gould also states that he has had "at least 20" episodes of diarrhea per day since . In addition, he has also felt sweaty, chilled. He does not have a documented fever. He denies any blood in his stool, known sick contacts (does not know of anyone else at rehab who is sick). He had been feeling well and was no longer experiencing withdrawal symptoms prior to the current problem starting. Past History - Past Medical History Allergies/Adverse Reactions: Allergies Allergy/AdvReac Type Severity Reaction Status Date / Time No Known Allergies Allergy Verified 04/07/19 16:30 Home Medications: Ambulatory Orders Bupropion HCl [Wellbutrin Xl] 300 mg PO DAILY 01/28/17 Gabapentin 800 mg PO BID 01/28/17 Baclofen 10 mg PO BID PRN 03/29/19 Buprenorphine HCl/Naloxone HCl [Suboxone 8 mg-2 mg Sl Tablets] 1 each SL TID Anemia: No Asthma: No Cancer: No Cardiac Disorders: No CVA: No COPD: No CHF: No Dementia: No Diabetes: No GI Disorders: Yes (GERD) Disorders: No HTN: No Hypercholesterolemia: No Kidney Stones: No Liver Disease: No Seizures: Yes (xanax related seizures last 2 months ago. alcoholism) Thyroid Disease: No - Surgical History Abdominal Surgery: No Appendectomy: No Cardiac Surgery: No Cholecystectomy: No Lung Surgery: No Neurologic Surgery: No Orthopedic Surgery: No - Reproductive History Testicular Surgery: No - Suicide/Smoking/Psychosocial Hx Smoking History: Former smoker Have you smoked in the past 12 months: Yes Number of Cigarettes Smoked Daily: 20 Cigars Per Day: 0 Information on smoking cessation initiated: Yes 'Breaking Loose' booklet given: 01/28/17 Hx Alcohol Use: Yes Drug/Substance Use Hx: No Substance Use Type: Cocaine, Marijuana, Opiates, Tranquilizers Hx Substance Use Treatment: Yes Review of Systems - Review of Systems Comments:: General: No fevers, no chills, no weight or appetite change, no malaise HEENT: No changes in vision, no changes in hearing, no congestion, no sore throat CV: No chest pain, no palpitations, no LE edema Pulm: No SOB, no cough, no wheezing GI: See HPI : No frequency, no urgency, no dysuria Musc: No back pain, no joint swelling, no recent injury Skin: No rash, no lesions, no erythema Endo: No excessive thirst, no heat/cold intolerance Heme: No unusual bruising or bleeding, no swollen glands Neuro: No syncope, no numbness/tingling, no focal weakness Vasc: No claudication Psych: No recent change in mood, no SI or HI *Physical Exam - Vital Signs Last Vital Signs Temp Pulse Resp BP Pulse Ox 98.1 F 85 20 124/80 100 04/07/19 16:02 04/07/19 16:02 04/07/19 16:02 04/07/19 16:02 04/07/19 16:02 - Physical Exam Comments: General: Comfortable, no acute distress HEENT: PERRL, EOMI, MMM, voice normal, normal neck ROM, no LAD Cards: RRR, no murmur appreciated Pulm: Comfortable on room air, clear to auscultation bilaterally Abd: Soft, Minimally TTP, nondistended Ext: Atraumatic. No LE edema. ROM intact Vasc: Extremities WWP Skin: Normal color, no rashes or lesions Neuro: A&Ox3, CN grossly intact, normal speech, motor/sensory grossly intact and symmetric Psych: Mood appropriate to situation ED Treatment Course - LABORATORY CBC & Chemistry Diagram: 04/07/19 16:59 04/07/19 16:59 - ADDITIONAL ORDERS Additional order review: Laboratory Results 04/07/19 16:59 Sodium 137 Potassium 3.8 Chloride 101 Carbon Dioxide 30 Anion Gap 7 L BUN 21.8 H Creatinine 1.1 Est GFR (CKD-EPI)AfAm 96.81 Est GFR (CKD-EPI)NonAf 83.53 Random Glucose 81 Calcium 8.8 Total Bilirubin 0.5 AST 25 ALT 43 Alkaline Phosphatase 77 Total Protein 7.8 Albumin 4.1 Lipase 75 04/07/19 16:59 RBC 4.82 MCV 89.6 MCHC 34.4 RDW 13.1 MPV 7.7 Neutrophils % 58.8 Lymphocytes % 30.6 Monocytes % 5.1 Eosinophils % 5.1 H Basophils % 0.4 - Medications Given in the ED: ED Medications Discontinued Medications Generic Name Dose Route Start Last Admin Trade Name Freq PRN Reason Stop Dose Admin Al Hydroxide/Mg Hydroxide 30 ml 04/07/19 17:32 04/07/19 17:55 Mylanta Suspension - PO 04/07/19 17:33 30 ml ONCE ONE Administration Famotidine/Sodium Chloride 20 mg in 50 mls @ 100 mls/hr 04/07/19 16:23 17:03 Pepcid 20 Mg Premixed Ivpb - IVPB 04/07/19 16:52 100 mls/hr ONCE ONE Administration Sodium Chloride 1,000 mls @ 1,000 mls/hr 04/07/19 16:23 04/07/19 17:03 Normal Saline - IV 04/07/19 17:22 1,000 mls/hr ASDIR STA Administration Metoclopramide HCl 10 mg 04/07/19 17:32 04/07/19 17:55 Reglan Injection - IVPUSH 04/07/19 17:33 10 mg ONCE ONE Administration Sodium Chloride 1,000 ml 04/07/19 17:32 04/07/19 18:14 Normal Saline - IV 04/07/19 17:33 1,000 ml ONCE ONE Administration Medical Decision Making - Medical Decision Making 04/07/19 18:25 Rolf Gould is a 38yo man with a PMH of polysubstance abuse (alcohol, benzos, tobacco, heroin - on suboxone 1yr), HTN, bipolar disorder, TBI (2008, 2012, questionable last month) who presents from [facility] rehab with 3 days of frequent vomiting, diarrhea, and PO intolerance. He has no fevers, significant abdominal pain, or s/s of systemic illness. - Most likely gastroenteritis w/ diarrhea and vomiting. CBC, CMP to evaluate for electrolyte abnormalities or significant leukocytosis. - Likely dehydrated due to vomiting - Famotidine, reglan, maalox 04/07/19 18:34 - Labs without concerning abnormalities. Cr increased from 0.9 to 1.1, likely due to some dehydration, but no electrolyte abnormalities or SILVER - Feeling improved after meds and fluids - Will PO challenge - Endorsed prior GERD and PUD, has had endoscopies (d/w Dr Díaz). Kian refer for GI follow up as he was previously lost to follow up 04/07/19 19:13 - No vomiting since arrival - Given water for PO challenge 04/07/19 19:21 - Tolerated PO. Will d/c back to rehab Discussed with Dr Díaz. Dia Vaz PGY1 *DC/Admit/Observation/Transfer Diagnosis at time of Disposition: Vomiting and diarrhea - Referrals Referrals: Negro Santos MD [Staff Physician] - - Patient Instructions Printed Discharge Instructions: DI for Viral Gastroenteritis -- Adult, Gastroenteritis Diet Additional Instructions: Discharge Instructions: You were seen in the ED for vomiting and diarrhea. Your blood tests did not show any concerning dehydration or electrolyte abnormalities. Your symtpoms are most likely due to a virus, and they will resolve with time. You were given IV fluids, reglan (anti-nausea), maalox, and Pepcid (anti-acid) medications while in the ED, and you were then able to tolerate liquids. Home Care and Follow Up: - Make sure you are drinking fluids, even if you are not hungry or able to eat much - Start with bland foods. Avoid dairy products, alcohol, caffeine, greasy/oily foods, or spicy foods - Take famotidine (Pepcid) or ranitidine (Xantac) daily until feeling better - You should also take reglan or zofran every 6-8 hours as needed for nausea and vomiting - You have been referred to GI (Dr Santos) for follow up - Seek immediate care if you are unable to tolerate liquids, you become dehydrated, you see a large amount of blood in your vomit, or you have blood in your stool. - Post Discharge Activity
--- NOTE | 2019-04-07 18:45 | PDOC ---
Attending Attestation - Resident Resident Name: Dia Vaz - ED Attending Attestation I have performed the following: I have examined & evaluated the patient, The case was reviewed & discussed with the resident, I agree w/resident's findings & plan - HPI HPI: 04/07/19 18:43 38 YOM with benzo and alcohol abuse presenting from [facility] rehab for n/v/d x 3-4 days, unresolving with zofran Last night noticed some small blood clots in his emesis. Patient with another episode of loose stool after lunch, c/o chills and abdominal discomfort, but no fevers - Physicial Exam PE: 04/07/19 18:45 Agree with the resident's HPI and PE as documented in the electronic medical record. NAD, well appearing, EOMI, PERRL, MMM, nl conjunctiva, anicteric; neck supple. lungs clear, RRR, abdomen soft nontender. Back nontender. HOLGUIN x4, no focal neuro deficits. No peripheral edema. normal color for ethnicity, WWP. - Medical Decision Making 04/07/19 18:45 Vital Signs Temp Pulse Resp BP Pulse Ox 98.1 F 85 20 124/80 100 04/07/19 16:02 04/07/19 16:02 04/07/19 16:02 04/07/19 16:02 04/07/19 16:02 See HPI for details. Prior notes reviewed, including admissions, discharges and consultations. Vital signs reviewed, wnl. DDx abdominal pain: Renal colic, biliary colic, metabolic/electrolyte derangements. GERD, PUD, duodenal ulcer, esophageal spasm, pancreatitis, hepatitis, , colitis, gastroenteritis, medication side effect, hernia, opioid w/ d syndrome laboratory results and imaging reviewed, basic labs and lytes wnl, LFTs/lipase normal no anemia. ED course - no episodes of emesis - given GI cocktail, IVF and reglan, feels improved tolerating PO challenge. abdomen soft benign. reading book at bedside finished detox, returning for inpatient rehab at [facility]. supportive care, hydration, diet modifications. Pt to be discharged in stable condition. Patient made aware of clinical impression, treatment recommendations and disposition plan, return precautions discussed (including but not limited to new or persistent/worsening symptoms, pain, fevers, or signs of infection, chest pain, respiratory distress, inability to tolerate oral intake, dehydration, syncope, or neurologic changes) . Follow up with PMD and/or GI specialists as recommended, follow up information provided, take medications as instructed for duration of time. continue with supportive care, avoid triggers and precipitants. All questions answered to patient's satisfaction and expressed understanding and comfort with this. At the time of discharge, the patient is alert, clinically improved, tolerating po and verbalizes understanding of instructions, satisfied with the care received and felt comfortable with the plan. Patient does not suffer from an acute life-threatening medical condition at this time and is safe for outpatient follow-up.
[2019-04-07 20:19] VITALS: BP 109/72; PULSE 68; TEMP 98.6
== END 2019-04-07 20:18 | disposition home or self-care (01) ==
LOC: JER 15:47
PROC: 3E033GC Introduction of Other Therapeutic Substance into Peripheral Vein, Percutaneous Approach (ICD-10-PCS; principal; 2019-04-07)
PROC: 3E033GC Introduction of Other Therapeutic Substance into Peripheral Vein, Percutaneous Approach (ICD-10-PCS; 2019-04-07)
DX: A08.4 Viral intestinal infection, unspecified (principal); B97.89 Other viral agents as the cause of diseases classified elsewhere; I10 Essential (primary) hypertension; F19.10 Other psychoactive substance abuse, uncomplicated; F10.10 Alcohol abuse, uncomplicated; F11.10 Opioid abuse, uncomplicated; F31.9 Bipolar disorder, unspecified; F13.20 Sedative, hypnotic or anxiolytic dependence, uncomplicated; Z87.820 Personal history of traumatic brain injury
CPT/HCPCS: 36415; 80053; 83690; 85025; 96365; 96375; 99283-25; J7030